=== PATIENT | male | born 1975 | race Caucasian/White ===

== ENCOUNTER → 2023-10-24 09:47 | Outpatient (BNVA) | payer OTHER, SELFPAY | PROVIDERS: PCP Internal Medicine; Visit Provider Physician Assistant Surgical ==

== ENCOUNTER 2023-12-01 10:52 | Outpatient (AMB) | payer OTHER, SELFPAY ==
--- NOTE | 2023-12-01 10:57 | A.OFFVIS_ITS ---
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 He heard about the program from his sister. His goal is to lose weight and achieve a healthy lifestyle as well as to improve, if not resolve, obesity related medical conditions, including htn, hld, berkley. He reports first being concerned about his weight most of his life, more so over the last 6 months, highest weight to date was 425. Current weight is 387.6 pounds with a BMI of 58.1. He has tried multiple methods of weight loss including fad diets without permanent results. He lives with his parents. 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 He wakes at:?530 am, and goes to bed at?930 pm. Dinner is at 5-6 pm. Breakfast: BK burrito AM snack: skip Lunch: sandwich PM snack: skip Dinner: meat and potatoes, vegetables After dinner: rare-rickey butter Other snacks: rare-cookies, Liquids: 48 oz water, [address] pepper daily, 8-10 oz OJ daily Alcohol/marijuana/tobacco intake: none Exercise: rowing machine as tolerated, GERD score: 0 ISABELLA score: 3 ESS score: 7 QOL score: 125 [facility] Surgical History (Updated 12/01/23 @ 11:29 by CASSANDRA Lock) History of back surgery Family History Mother No problems noted. Father No problems noted. Daughter No problems noted. Social History Alcohol intake: current Alcohol intake frequency: holidays/special occasions only Patient Tobacco Use Status: Never used Tobacco Review of Systems Const All systems reviewed & are unremarkable except as noted in HPI and below Physical Exam Const General: cooperative, healthy appearing and no acute distress Orientation/consciousness: patient oriented x3 HEENT Head: Yes normal to inspection Ears: hearing grossly normal bilaterally General nose exam: Normal external nose present Face and sinus: Yes normal facial exam Eyes General: appearance normal, both eyes and all related structures Resp Effort & Inspection: normal respiratory effort Auscultation: clear to auscultation bilaterally Cardio Rate: regular rate Rhythm: regular rhythm Heart sounds: S1 normal heart sound present and S2 normal heart sound present GI Inspection: Yes normal to inspection, No distended and Yes obesity Palpation (GI): Soft to palpation, nontender and no guarding Auscultation: normal bowel sounds Skin General skin exam: no rashes or lesions noted Neuro General: patient oriented x3 Extrem General: Yes edema (tr-1+ BLE) Left lower extremity: foot Details: other (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 Blood work, h pylori , CXR, ECG, Abd US and UGI have been ordered. He is being scheduled for RD and BH initial consultations. He will start SWL classes and watch the first three videos before his next appointment. ? Adequate sleep of 7-8 hours per night discussed, awakening at 530 am and going to bed around 930 pm ? Purchase body composition analyzer scale (Renpho recommended) and check weight weekly. I checked and this does go to 400 pounds but there are several models so check the specification before ordering. The best time to do this is first thing in the morning after going to the bathroom. 1. Nutritional counseling: Be sure to careful read the number of scoops per shake Start with 2 Celebrate rebuild shakes ([facility] [place], [place], [employer]), (2 scoops in 20 oz unsweetened almond milk each) First shake at 630am-830am, Second shake at 1030am-1230pm 1 protein bar ([employer] bars at [facility] [place], [place], [employer]) at 130pm-330pm. Dinner at 530pm (14 forks of protein and 14 forks of salad/vegetables). Meal to include lean meat (beef, fish, pork, turkey, chicken), cooked vegetables or a salad with olive oil and/or fruits (berries, pears, apples, kiwi). Avoid salt, breads, potatoes, rice, pasta, desserts. Try to drink 64 oz of water daily and avoid soda and juices. ?2. Each shake would be drunk slowly, like coffee in a period of 2 hours. ?3. Cut each bar in 4 pieces and eat each piece in 30 min ?to make each bar last 2 hours. ?4. I emphasized the importance of measuring accurately the food portion and measure it carefully when serving the food on the plate ?5. The meal portions include 14 full-size forks of meat and 14 full-size forks of salad. You always eat the meat portion but you can replace up to half of the forks of salad/vegetables with rice, potatoes or pasta, or a fruit ?if you like. The less you do it the better weight loss will be. ?6. One full-size fork is what can be scooped on the fork without falling aside and not what can be bit with the fork. Use regular forks like those you find in a typical restaurant. ?7.? Please send me weight measurements as soon as possible and then once a week. Always include your diet and exercise plan. Alternatively come weekly at the office for weight checks and send me the measurements. ?8. Exercise counseling: Begin by watching a stretching for beginners video. Start slowly and begin to stretch your muscles. You should do this before and after each exercise session to prevent injury. Please join [employer] or [employer] gym near your home. Ask the internet manager or one of the trainers how to use the machines if you are unfamiliar with them. Start elliptical with a resistance of 2. Increase resistance by 1 every 3 min to your most comfortable resistance with a max resistance of 8. Reduce the resistance by 1 every 3 minutes back down to 2 and repeat cycles for 300 calories. Alternatively, start treadmill with a speed of 3.0 and incline of 0, increasing incline by 1 every 3 minutes to the highest comfortable level (max 6 for now) then decrease in the same fashion. Repeat process to a goal of 300 calories. Goal of 2000 calories burned or more weekly. You may also consider use of the recumbent stationary bike. The easiest would be to chose the fat-burn or interval training program on the machine and do this until you reach the 300 calorie goal. Alternatively, you can manually adjust the resistance in a similar fashion as mentioned above, (resistance of 2-8 with a goal speed of 12 mph). You may also use the rowing machine that you have at home starting with a resistance of 3 and increasing resistance by 1 every three minutes to a max of 5 and then decrease in the same fashion. You may also consider joining the [facility] to be able to walk in the pool in the shallow end for 30-45 minutes 4 times per week. Swimming is also a great choice 4 times per week as an additional option. Tracking calories is essential. 9. Alternatively start walking outside daily, tracking calories with a goal of 300 calories per day, daily. You can download the deepa [email or web address] which can track your time, distance and calories while walking outside. You press start in the deepa when you start and then stop when you are finished. 10.? It is important to communicate by text weekly with your weight and if you are having any problems. 11. Please get labs, EKG and chest X-Ray within 1 week. 12. Discussed and answered all questions regarding?obtained consent to participate in the [place] [facility]?Registry. 13. Please follow the diet plan exactly, without any change. If you do not like something about the plan or you feel hungry, you need to communicate with me so I can help you revise the plan. You should not change the plan yourself. Text me at [phone] 14. Goal is to lose at least 12 pounds in the first month 15. Goal is to lose 10% of your weight before surgery, which is about 38 lbs. Ultimate weight goal: 349 lbs or less before surgery Patient is morbidly obese and is not considered stable at this time.?I spent a total of 70 minutes reviewing/updating records, examining the patient and counseling the patient on weight management as detailed above. Orders: Orders Insulin Today E66.01 - Morbid (severe) obesity due to excess calories, E78.00 - Pure hypercholesterolemia, unspecified, I10 - Essential (primary) hypertension Complete Blood Count Auto Diff Today E66.01 - Morbid (severe) obesity due to excess calories, E78.00 - Pure hypercholesterolemia, unspecified, I10 - Essential (primary) hypertension Lipid Panel Today E66.01 - Morbid (severe) obesity due to excess calories, E78 .00 - Pure hypercholesterolemia, unspecified, I10 - Essential (primary) hypertension Comprehensive Met. Panel Today E66.01 - Morbid (severe) obesity due to excess calories, E78.00 - Pure hypercholesterolemia, unspecified, I10 - Essential (primary) hypertension Vitamin B12 and Folate Today E66.01 - Morbid (severe) obesity due to excess calories, E78.00 - Pure hypercholesterolemia, unspecified, I10 - Essential (primary) hypertension Zinc Today E66.01 - Morbid (severe) obesity due to excess calories, E78.00 - Pure hypercholesterolemia, unspecified, I10 - Essential (primary) hypertension C Reactive Protein Today E66.01 - Morbid (severe) obesity due to excess calories, E78.00 - Pure hypercholesterolemia, unspecified, I10 - Essential (primary) hypertension XR chest 2V Today E66.01 - Morbid (severe) obesity due to excess calories, E78.00 - Pure hypercholesterolemia, unspecified, I10 - Essential (primary) hypertension ECG 12 lead EKG Today E66.01 - Morbid (severe) obesity due to excess calories, E78.00 - Pure hypercholesterolemia, unspecified, I10 - Essential (primary) hypertension FL upper GI w air Today E66.01 - Morbid (severe) obesity due to excess calories, E78.00 - Pure hypercholesterolemia, unspecified, I10 - Essential (primary) hypertension Hemoglobin A1c Today E66.01 - Morbid (severe) obesity due to excess calories, E78.00 - Pure hypercholesterolemia, unspecified, I10 - Essential (primary) hypertension H Pylori Breath Test Today E66.01 - Morbid (severe) obesity due to excess calories, E78.00 - Pure hypercholesterolemia, unspecified, I10 - Essential (primary) hypertension IRON PROFILE Today E66.01 - Morbid (severe) obesity due to excess calories, E78.00 - Pure hypercholesterolemia, unspecified, I10 - Essential (primary) hypertension Vitamin B1 Today E66.01 - Morbid (severe) obesity due to excess calories, E78.00 - Pure hypercholesterolemia, unspecified, I10 - Essential (primary) hypertension Vitamin A Today E66.01 - Morbid (severe) obesity due to excess calories, E78.00 - Pure hypercholesterolemia, unspecified, I10 - Essential (primary) hypertension TSH reflex Free T4 Today E66.01 - Morbid (severe) obesity due to excess calories, E78.00 - Pure hypercholesterolemia, unspecified, I10 - Essential (primary) hypertension Ferritin Today E66.01 - Morbid (severe) obesity due to excess calories, E78.00 - Pure hypercholesterolemia, unspecified, I10 - Essential (primary) hypertension Vitamin D 25-OH Total Today E66.01 - Morbid (severe) obesity due to excess calories, E78.00 - Pure hypercholesterolemia, unspecified, I10 - Essential (primary) hypertension US abdomen comp w elastography Today E66.01 - Morbid (severe) obesity due to excess calories, E78.00 - Pure hypercholesterolemia, unspecified, I10 - Essential (primary) hypertension Referrals Nutrition/Dietitian Referral E66.01 - Morbid (severe) obesity due to excess calories, E78.00 - Pure hypercholesterolemia, unspecified, I10 - Essential (primary) hypertension Behavioral Health Referral E66.01 - Morbid (severe) obesity due to excess calories, E78.00 - Pure hypercholesterolemia, unspecified, I10 - Essential (primary) hypertension Coding Level of Care Code New Pt Level 5 (24129) Diagnoses Morbid obesity E66.01 Time Spent (min) 70
[2023-12-01 11:06] VITALS: BP 148/70; PULSE 100; TEMP 36; O2SAT 95; BMI 58.1
== END 2023-12-01 12:27 | disposition home or self-care (01) ==
PROVIDERS: PCP Internal Medicine; Visit Provider Physician Assistant Surgical
DX: E66.01 Morbid (severe) obesity due to excess calories (principal); Z68.43 Body mass index [BMI] 50.0-59.9, adult
CPT/HCPCS: 99205

== ENCOUNTER → 2023-12-01 10:52 | Outpatient (BNVA) | payer OTHER, SELFPAY | PROVIDERS: PCP Internal Medicine; Visit Provider Physician Assistant Surgical | DX: E66.01 Morbid (severe) obesity due to excess calories (principal); Z68.43 Body mass index [BMI] 50.0-59.9, adult | CPT/HCPCS: 99202 ==

== ENCOUNTER 2023-12-12 11:37 | Outpatient (REF) | payer OTHER, SELFPAY ==
--- NOTE | ~2023-12-12 | XR_ITS ---
EXAMINATION: XR CHEST CLINICAL INFORMATION: Reason for Exam E66.01 - Morbid (severe) obesity due to excess calories COMPARISON: None available. TECHNIQUE: 2 views of the chest were obtained. FINDINGS: No significant abnormality is noted involving the heart, lungs, mediastinum, bony thorax or soft tissues. XR/XR chest 2V IMPRESSION: Unremarkable examination.
--- NOTE | 2023-12-12 11:44 | ECG_ITS ---
Test Reason : E66.01 Blood Pressure : / mmHG Vent. Rate : 081 BPM Atrial Rate : 081 BPM P-R Int : 252 ms QRS Dur : 102 ms QT Int : 374 ms P-R-T Axes : 069 -16 027 degrees QTc Int : 434 ms Sinus rhythm with 1st degree A-V block Inferior infarct , age undetermined Abnormal ECG No previous ECGs available Referred By: Mannie Neves Electronically Signed By:Keenan Hernandez
[2023-12-12 12:04] LABS: MANUAL DIFF FLAG NO
[2023-12-12 12:26] LABS: Basophils Percent Auto 0.4 % (0-2); Eosinophils Absolute Auto 0.1 X10*3/uL (0.0-0.4); Eosinophils Percent Auto 1.8 % (0-4); Hematocrit 43.5 % (42.0-52.0); Hemoglobin 14.6 g/dl (14.0-18.0); Imm Gran Abs Auto 0.01 X10*3/uL (0.00-0.03); Imm Gran Pct Auto 0.2 % (0.0-0.4); Lymphocytes Absolute Auto 1.7 X10*3/uL (1.2-4.9); Lymphocytes Percent Auto 31.6 % (20-40); Mean Corpuscular HGB Conc 33.6 g/dl (31.0-36.0); Mean Corpuscular Hemoglobin 30.3 pg (27.0-33.0); Mean Corpuscular Volume 90.2 fL (80.0-98.0); Mean Platelet Volume 11.2 fL (9.4-12.4); Monocytes Absolute Auto 0.5 X10*3/uL (0.1-1.2); Monocytes Percent Auto 8.5 % (2-11); Neutrophils Absolute Auto 3.2 x10*3/uL (2.0-8.3); Neutrophils Percent Auto 57.5 % (45-73); Platelet Count 195 X10*3/uL (160-400); Red Blood Count 4.82 X10*6/uL (4.60-5.80); Red Cell Distribution Width 13.2 % (11.0-16.0); White Blood Count 5.5 X10*3/uL (4.8-10.8)
[2023-12-12 12:39] LABS: Estimated Average Glucose 97 mg/dL
[2023-12-12 12:50] LABS: Alanine Aminotransferase 59 U/L (0-40); Albumin Level 4.8 g/dL (3.5-5.0); Alkaline Phosphatase 58 U/L (39-117); Anion Gap 16 (12-20); Aspartate Amino Transferase 46 U/L (5-37); Bilirubin Total 0.5 mg/dL (0.0-1.0); Blood Urea Nitrogen 19 mg/dL (9-16); C Reactive Protein 0.61 mg/dL (< or = 0.50); Calcium 9.6 mg/dL (8.4-10.2); Carbon Dioxide 27 mmol/L (22-29); Chloride 100 mmol/L (96-108); Cholesterol 132 mg/dL (<200); Estimated Glomerular Filt Rate > 60; Glucose Random 86 mg/dL (60-115); HDL Cholesterol 17 mg/dL (>40); Iron 99 mcg/dL (45-160); LDL Cholesterol Calculated 57 mg/dL (<100); Percent Iron Saturation 33 % (15-50); Potassium 4.4 mmol/L (3.3-5.1); Sodium 139 mmol/L (135-145); Total Iron Binding Capacity 298 mcg/dL (228-428); Total Protein 7.6 g/dL (6.5-8.0); Triglycerides 292 mg/dL (<150); Unsaturated Iron Binding 199 ug/dL
[2023-12-12 13:06] LABS: Ferritin 723 ng/mL (20-250); Insulin 18 uU/mL (2-29); TSH reflex Free T4 0.61 uIU/mL (0.32-4.0); Vitamin D 25-OH Total 26.1 ng/mL (>30)
[2023-12-12 13:18] LABS: Folate 13.6 ng/mL (> or = 4.0); Vitamin B12 860 pg/mL (200-900)
[2023-12-15 01:33] LABS: Vitamin A 88 mcg/dL (38-98)
[2023-12-15 02:43] LABS: Zinc 93 mcg/dL (60-130)
[2023-12-16 17:24] LABS: Vitamin B1 <6 nmol/L (8-30)
== END 2023-12-12 11:38 | disposition home or self-care (01) ==
LOC: HO.LAB 11:37
PROVIDERS: PCP Internal Medicine; Visit Provider Physician Assistant Surgical
DX: E66.01 Morbid (severe) obesity due to excess calories (principal); E78.00 Pure hypercholesterolemia, unspecified; I10 Essential (primary) hypertension
CPT/HCPCS: 36415; 71046; 80053; 80061; 82306; 82607; 82728; 82746; 83036; 83525; 83540; 84425; 84443; 84590; 84630; 85025; 86140; 93005

== ENCOUNTER → 2023-12-12 11:44 | Outpatient (BNV) | payer OTHER, SELFPAY | PROVIDERS: PCP Internal Medicine; Visit Provider Internal Medicine Cardiovascular Disease | DX: E66.01 Morbid (severe) obesity due to excess calories (principal); I44.0 Atrioventricular block, first degree | CPT/HCPCS: 93010 ==

== ENCOUNTER 2023-12-22 11:27 | Outpatient (AMB) | payer OTHER, SELFPAY ==
--- NOTE | 2023-12-22 11:12 | MHC.AMNUTRGE ---
Intake Intake Visit Reasons: VIDEO Initial Nutrition [facility] Auditing Specialist Required: No Allergies Sulfa (Sulfonamide Antibiotics) Allergy (Intermediate, Verified 12/01/23 11:02) Rash pcn Adverse Reaction (Intermediate, Uncoded 10/24/23 10:34) rash HPI Nutrition Presentation Reason for consult elevated BMI Diet Assmnt Details Reports doing well with the plan and states its not difficult to stick to it . Does sometimes lose track of bites of food. Overall he really like the nutrition plan from [place]. Does report hx of emotional eating but is very mindful and aware of it. We talked about coping strategies and seeking support as needed. [facility] online classes: none yet ; was having issues accessing them Dietary counseling reduction Who buys your food parent Who prepares/cooks your food parent Meal frequency regular: breakfast, lunch and dinner (meal at home) and irregular: snacks (very rare ) Lifestyle Eating out 4 or more times/week Family support Yes Food frequency Fruit: daily, Vegetables: daily, Grains/pasta/breads/cereal (carbs): daily, Meats/poultry/fish (protein): daily (minimal fish ), Meat substitutes/nuts/seeds/legumes: daily, Processed foods/meats: daily, Restaurants/fast foods: daily, Soda: daily, Coffee: occasionally and Sports/energy drinks: daily Diagnosis Nutrition problem #1 overweight/obesity As related to (etiology) #1 excess energy intake and physical inactivity As evidenced by (sign/symptom) #1 high BMI Monitoring/Goals Nutrition problem monitoring total energy intake, level of knowledge/skill, total PRO intake, total CHO intake and weight Outcome progress progressing Learning/Education Readiness to learn excellent Stages of change action Educational materials provided Yes Most Recent Diabetes Results: Cholesterol 132 mg/dL (<200) 12/12/23 HDL Cholesterol 17 mg/dL (>40) L 12/12/23 Triglycerides 292 mg/dL (<150) H 12/12/23 Creatinine 1.12 mg/dL (0.5-1.4) 12/12/23 Blood Urea Nitrogen 19 mg/dL (9-16) H 12/12/23 Sodium 139 mmol/L (135-145) 12/12/23 Potassium 4.4 mmol/L (3.3-5.1) 12/12/23 Chloride 100 mmol/L (96-108) 12/12/23 Carbon Dioxide 27 mmol/L (22-29) 12/12/23 Calcium 9.6 mg/dL (8.4-10.2) 12/12/23 AST 46 U/L (5-37) H 12/12/23 ALT 59 U/L (0-40) H 12/12/23 Total Protein 7.6 g/dL (6.5-8.0) 12/12/23 Albumin 4.8 g/dL (3.5-5.0) 12/12/23 [facility] Surgical History (Updated 12/01/23 @ 11:29 by CASSANDRA Lock) History of back surgery Family History (Updated 12/01/23 @ 11:04 by Marion Doll CMA) Mother No problems noted. Father No problems noted. Daughter No problems noted. Social History (Updated 12/01/23 @ 11:03 by Marion Doll CMA) Alcohol intake: current Alcohol intake frequency: holidays/special occasions only Patient Tobacco Use Status: Never used Tobacco Assessment & Plan Assessment & Plan (1) Morbid obesity: Code(s): E66.01 - Morbid (severe) obesity due to excess calories Plan Will be seen again to review SWL classes . nutrition f/u December Telehealth Telehealth Location of provider rendering services: practice address Location of patient: address on file Patient Identification confirmed using: Name, : Yes Telehealth method: video Patient verbally consented to treatment: Yes Patient verbally consented to billing insurance company: Yes Patient informed of any privacy concerns related to visit: Yes Minutes spent on Phone/Video with Pt.: 30 Coding Level of Care Code Nutr Indiv Intake (70074) Diagnoses Morbid obesity E66.01 Time Spent (min) 30
== END 2023-12-22 11:36 | disposition home or self-care (01) ==
LOC: HO.HBS 11:30
PROVIDERS: PCP Internal Medicine; Visit Provider Dietitian, Registered
DX: E66.01 Morbid (severe) obesity due to excess calories (principal)

== ENCOUNTER → 2023-12-22 11:27 | Outpatient (BNVA) | payer OTHER, SELFPAY | PROVIDERS: PCP Internal Medicine; Visit Provider Dietitian, Registered | DX: E66.01 Morbid (severe) obesity due to excess calories (principal) | CPT/HCPCS: 97802 ==

== ENCOUNTER 2023-12-29 09:15 | Outpatient (REF) | payer OTHER, SELFPAY ==
--- NOTE | ~2023-12-29 | US_ITS ---
EXAMINATION: US COMPLETE ABDOMEN WITH LIVER ELASTOGRAPHY CLINICAL INFORMATION: Morbid obesity. COMPARISON: CT scan dated September 13, 2007. TECHNIQUE: Real-time imaging of the abdominal viscera. Noninvasive ultrasound liver fibrosis assessment is performed using Christian[employer] Elast[employer] point quantification shear wave elastography (2D-SWE) with a C5-2 MHz transducer. Multiple elastography samples are obtained. FINDINGS: Somewhat limited by patient body habitus. PANCREAS: Head and body appear unremarkable. Tail not visualized. ABDOMINAL AORTA: The proximal, middle, and distal aortic segments appear unremarkable in caliber. INFERIOR VENA CAVA: Visualized portions appear unremarkable. LIVER: Borderline mildly echogenic. Unremarkable contour. No focal lesion or intrahepatic biliary duct dilatation appreciated. The right lobe measures 19.7 cm in length. The left lobe measures 16.1 cm in length. Portal flow is towards the liver (hepatopetal). Shear wave liver elastography median stiffness is 1.79 m/s (reference: normal median stiffness is 1.3 m/s or less). IQR/median stiffness to assess sampling precision is 0.11 (reference: good quality data set is IQR/median stiffness of 0.15 or less). GALLBLADDER: The gallbladder is physiologically distended without evidence of stones, sludge, polyps, wall thickening or pericholecystic fluid. Technologist reports negative sonographic Coronado's sign. COMMON BILE DUCT: Normal in caliber measuring 0.5 cm in diameter. RIGHT KIDNEY: No hydronephrosis. No renal calculi or focal parenchymal lesion identified. The kidney measures 13.7 cm in maximum dimension. LEFT KIDNEY: 1.2 x 1.0 x 0.9 cm, homogeneously hypoechoic, exophytic left upper pole renal lesion which does not clearly demonstrate increased through transmission, therefore incompletely characterized. No hydronephrosis. No renal calculi identified. The kidney measures 14.6 cm in maximum dimension. SPLEEN: The spleen measures 13.0 cm in maximum dimension. FREE FLUID: None. US/US abdomen comp w elastography IMPRESSION: 1.2 x 1.0 x 0.9 cm, homogeneously hypoechoic, exophytic left upper pole renal lesion which does not clearly demonstrate increased through transmission, therefore incompletely characterized on the current ultrasound examination. Recommend with and without MRI or with and without CT scan for further evaluation. Borderline mild fatty infiltration of the liver. Mild hepatosplenomegaly. Liver elastography: Measurements are suggestive of compensated advanced chronic liver disease but need further test for confirmation. REFERENCE: Society of Radiologists in Ultrasound Liver Stiffness Thresholds (2020): LIVER STIFFNESS THRESHOLDS: *Liver Stiffness equal or less than 1.3 m/s: High probability of being normal. *Liver Stiffness less than 1.7 m/s: In the absence of other known clinical signs, rules out compensated advanced chronic liver disease. *Liver Stiffness 1.7-2.1 m/s: Suggestive of compensated advanced chronic liver disease but need further test for confirmation. *Liver Stiffness over 2.1 m/s: Rules in compensated advanced chronic liver disease. *Liver Stiffness over 2.4 m/s: Suggestive of clinically significant portal hypertension. QUALITY OF DATA SET: *IQR/Median value equal or less than 0.15 implies a quality data set. *IQR/Median value over 0.15 implies a poor quality data set. SIGNIFICANT CHANGE FROM PRIOR EXAM: Significant change if liver stiffness measurement is 10% or greater from prior exam. OTHER CONSIDERATIONS: The stage of liver fibrosis may be overestimated in the setting of acute hepatitis, liver inflammation, elevated liver function tests, hepatic vascular congestion, obstructive cholestasis, non-fasting state, and infiltrative diseases such as amyloidosis and lymphoma. In some patients with NAFLD, the liver stiffness thresholds for compensated advanced chronic liver disease may be lower. In causes other than viral hepatitis and NAFLD, liver stiffness thresholds are not well established.
== END 2023-12-29 09:16 | disposition home or self-care (01) ==
LOC: HO.US 09:15
PROVIDERS: PCP Internal Medicine; Visit Provider Physician Assistant Surgical
DX: E66.01 Morbid (severe) obesity due to excess calories (principal); E78.00 Pure hypercholesterolemia, unspecified; I10 Essential (primary) hypertension
CPT/HCPCS: 76700; 76981

== ENCOUNTER → 2024-01-01 09:56 | Outpatient (REF) | payer OTHER, SELFPAY ==
--- NOTE | ~2024-01-01 | NM_ITS ---
Myocardial perfusion study Indication: Abnormal EKG to evaluate for myocardial ischemia Technique: The patient was brought in for a Lexiscan perfusion study on 01/01/2024. Patient performed low-level exercise and was injected 0.4 mg of Lexiscan intravenously. Within a minute of injection, 45 mCi of sestamibi was given intravenously. Images were obtained using the SPECT gamma camera interlaced with the gating device. Images were obtained in supine position. Resting perfusion study was performed on 01/08/2024. Patient was administered 45 mCi of sestamibi intravenously at rest. Images were then obtained in supine position. Images obtained with and without CT attenuation. Total DLP 187 mGy-cm. Images were processed with the software and compared side to side in short axis, horizontal long axis and vertical long axis views. Findings: The stress perfusion study showed non attenuated images show moderately reduced uptake in the inferior wall with mildly reduced uptake in the adjacent inferoseptal wall of the LV myocardium. Remainder of the LV myocardium is normally perfused. Attenuation corrected images show some thinning of the inferoapical wall of the LV myocardium.. The gated study shows normal LV systolic function with calculated LVEF of greater than 50%. LV cavity is normal in size. The gated study shows normal systolic wall thickening and contraction of segments. Resting study shows non attenuated images show no change in perfusion pattern compared to stress perfusion study. Attenuation corrected images show mildly to moderately reduced uptake in the apex of the LV myocardium.. Gating at rest reveals normal systolic wall motion with ejection fraction at 58%. The findings are consistent with likely normal myocardial perfusion. NM/NM cardiolite stress test Impression: 1. Myocardial perfusion imaging study shows likely normal myocardial perfusion 2. Gated LVEF is 58% 3. Transient ischemic dilatation not present EKG is nondiagnostic for ischemia
--- NOTE | 2024-01-01 09:59 | CA_ITS ---
Acquisition Time: 2024-01-01 10:05:37 Total Exercise Time: 00:02:00 Test Indications: Abnormal ECG Medications: CITALOPRAM LISINOPRIL/HCTZ LATUDA MELOXICAM ROSUVASTATIN Protocol: LEXISCAN Max HR: 125 BPM 73% of Pred: 171 BPM Max BP: 146/070 mmHG Max Work Load: 1.0 METS Pharmaoclogical stress test with Lexiscan injection while sitting and kicking his legs, without anginal symptoms., witout arrhythmias, with resting HTN, normotensive resposne to injection, with nondiagnoisitic EKGs. Nuclear images pending. Test reviewed with Dr. Hernandez. Referred By: Mannie Neves Overread By: Odalis Ferreira
== END ==
LOC: HO.CARD 09:56
PROVIDERS: PCP Internal Medicine; Visit Provider Physician Assistant Surgical
DX: R94.31 Abnormal electrocardiogram [ECG] [EKG] (principal)
CPT/HCPCS: 78452; 93017; A9500; J0280; J2785

== ENCOUNTER → 2024-01-01 09:59 | Outpatient (BNV) | payer OTHER, SELFPAY | PROVIDERS: PCP Internal Medicine; Visit Provider Nurse Practitioner | DX: R94.31 Abnormal electrocardiogram [ECG] [EKG] (principal) | CPT/HCPCS: 78452; 93016; 93018 ==

== ENCOUNTER 2024-01-01 15:42 | Outpatient (AMB) | payer OTHER, SELFPAY ==
--- NOTE | 2024-01-01 15:34 | MHC.WMTHER ---
Intake Intake Visit Reasons: VIDEO BH Intake Allergies Sulfa (Sulfonamide Antibiotics) Allergy (Intermediate, Verified 12/01/23 11:02) Rash pcn Adverse Reaction (Intermediate, Uncoded 10/24/23 10:34) rash PFSH Surgical History (Updated 12/01/23 @ 11:29 by CASSANDRA Lock) History of back surgery Family History (Updated 12/01/23 @ 11:04 by Marion Doll CMA) Mother No problems noted. Father No problems noted. Daughter No problems noted. Social History (Updated 12/01/23 @ 11:03 by Marion Doll CMA) Alcohol intake: current Alcohol intake frequency: holidays/special occasions only Patient Tobacco Use Status: Never used Tobacco Behavioral Health Assessment Weight Management Therapy Therapy Notes Details Pt is looking to have weight loss surgery to help improve his health and quality of life. Pt has a long history of depression and some hypomanic episodes. He stated that he sees a nurse practioner (Tania Pressley) for medication, has been diagnosed him with Cyclothymic Disorder. He was seein a therapist in that office but did not find it helpful to recap his past two weeks. He reported one previous inpatient psychiatric admission in 2013 with a stepdown to [facility] program outpatient. Presenting Concerns Referral Source provider Reason for referral weight loss surgery evaluation Precipitating Event obesity Living Situation Current Living Situation Relative's/Guardian's Pilar At risk of losing current housing? No Satisfied with current living situation? Yes Comments Patient lives with his elderly parents. Food/Weight/Diet Expectations of change weight loss and maintenance History/Relationship with food Pt stated that he was often snacking, eating out of boredom or emotional eating. He was eating fast food about several times a week, History/Relationship with weight Pt stated that at his heaviest he was 424lbs, once in his late 20's, then dropped to 275lbs. He stated that he was somewhat always overweight. History/Relationship with dieting various self diets, will be consistent for about 20lbs and then stop. Binge Eating Do you frequently eat large amounts of food in short periods of time, not feeling physically hungry? Yes Do you feel out of control when you eat a large amount of food in a short period of time? No Do you eat large amounts of food rapidly and typically alone? No Night Eating Do you wake up at least once during the night to eat? No If you wake up in the night, do you find that it is necessary to eat something in order to fall back asleep? No Do you have little or no appetite in the morning and feel very hungry in the evening, often overeating between dinner and when you go to bed? No Social History Family history and relationship Pt is and has one child who is ten years old who he does not get to see. He lives with his parents. Pt is one of three siblings raised by both his parents. Parental/Familial water rights specialist obligations elderly parents Developmental history and status none Social support sister, brother, mother Cultural/Ethnic information Legal Involvement and History Current or historical involvement with the legal system? none Education Highest grade completed some college Preferred learning style Auditory, Verbal, Written, Learn by doing and Visual Currently enrolled in educational program? No Interested in further educational program? 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 No Meaningful activities Has a membership to the [employer] Financial Situation Describe current financial situation Occasional struggle Financial assistance? None Service Service? No Mental Health and Addiction Treatment Current/Past substance abuse? No Current/Past addictive behavior concerns? No Medical and Physical Health Summary Physical exam in the last year? Yes Pain Screening Current pain? No Pain in the last few months? No Medications Is the patient compliant with medications? Yes Does the patient have Victoria Guardian in place? Not applicable Does the patient use complimentary health approaches? No Trauma/Abuse History History of trauma? Yes Questionnaires PHQ-9 Over the last 2 weeks, how often have you been bothered by any of the following problems? 1. Little interest or pleasure in doing things: several days 2. Feeling down, depressed, or hopeless: more than half the days 3. Trouble falling or staying asleep, or sleeping too much: more than half the days 4. Feeling tired or having little energy: more than half the days 5. Poor appetite or overeating: more than half the days 6. Feeling bad about yourself - or that you are a failure or have let yourself or your family down: several days 7. Trouble concentrating on things, such as reading the newspaper or watching television: nearly every day 8. Moving or speaking so slowly that other people could have noticed. Or the opposite - being so fidgety or restless that you have been moving around a lot more than usual: not at all 9. Thoughts that you would be better off or of hurting yourself in some way: several days Total score: 14 Source: Developed by Drs. Teo Pulido, Randi Rocha, Devendra Silverio and colleagues, with an educational ishmael from [employer]. Binge Eating Scale Group 1 A. I don't feel self-conscious about my wt. or body size when I'm with others. B. I feel concerned about how I look to others, but it normally does not make me fell disappointed with myself C. I do get self-conscious about my appearance and wt. which makes me feel disappointed in myself. D. I feel very self-conscious about my wt. and frequently I feel intense shame and disgust for myself. I try to avoid social contacts because of my self-consciousness. Response Group 1: D Group 2 A. I don't have any difficulty eating slowly in the proper manner. B. Although I seem to gobble down foods, I don't end up feeling stuffed because of eating to much. C. At times, I tend to eat quickly and then, I feel uncomfortably full afterwards. D. I have the habit of bolting down my food, without really chewing it. When this happens I usually feel uncomfortably stuffed because I've eaten to much. Response Group 2: C Group 3 A. I feel capable to control my eating urges when I want to. B. I feel like I have failed to control my eating more than the average person. C. I feel utterly helpless when it comes to feeling in control of my eating urges. D. Because I feel so helpless about controlling my eating I have become very desperate about trying to get control. Response Group 3: B Group 4 A. I don't have the habit of eating when I'm bored. B. I sometimes eat when I'm bored, but often I'm able to get busy and get my mind off food. C. I have a regular habit of eating when I'm bored, but occasionally, I can use some other activity to get my mind off eating. D. I have a strong habit of eating when I'm bored. Nothing seems to help me breath the habit. Response Group 4: C Group 5 A. I'm usually physically hungry when I eat something. B. Occasionally, I eat something on impulse even though I really am not hungry. C. I have the regular habit of eating foods, that I might not really enjoy, to satisfy a hungry feeling even though physically, I don't need the food. D. Although I'm not physically hungry, I get a hungry feeling in my mouth that only seems to be satisfied when I eat a food, like sandwich, that fills my mouth. Sometimes, when I eat the food to satisfy my mouth hunger, I then spit the food out so I won't gain weight. Response Group 5: B Group 6 A. I don't feel any guilt or self-hate after I overeat. B. After I overeat, occasionally I feel guilt or self-hate. C. Almost all the time I experience strong guilt or self-hate after I overeat. Response Group 6: B Group 7 A. I don't lose total control of my eating when dieting even after periods when I overeat. B. Sometimes when I eat a forbidden food on a diet, I feel like I blew it and eat even more. C. Frequently, I have the habit of saying to myself, I've blown it now, why not go all the way, when I overeat on a diet. When that happens I eat more. D. I have a regular habit of starting a strict diets for myself but I break the diets by going on an eating binge. My life seems to be either a feast or famine. Response Group 7: D Group 8 A. I rarely eat so much food that I feel uncomfortably stuffed afterwards. B. Usually about once a month, I each such a quantity of food, I end up feeling very stuffed. C. I have regular periods during the month when I eat large amounts of food, either at mealtime or at snacks. D. I eat so much food that I regularly feel quite uncomfortable after eating and sometimes a bit nauseous. Response Group 8: A Group 9 A. My level of calorie intake does not go up very high or go down very low on a regular basis. B. Sometimes after I overeat, I will try to reduce my caloric intake to almost nothing to compensate for the excess calories I've eaten. C. I have a regular habit of overeating during the night. It seems that my routine is not to be hungry in the morning but overeat in the evening. D. In my adult years, I have had week-long periods where I practically starve myself. This follows periods when I overeat. It seems I live a life of either feast or famine. Response Group 9: B Group 10 A. I usually am able to stop eating when I want to. I know when enough is enough. B. Every so often, I experience a compulsion to eat which I can't seem to control. C. Frequently, I experience strong urges to eat which I seem unable to control, but at other times I can control my eating urges. D. I feel incapable of controlling urges to eat. I have a fear of not being able to stop eating voluntarily. Response Group 10: C Group 11 A. I don't have any problem stopping eating when I feel full. B. I usually can stop eating when I feel full but occasionally overeat leaving me feeling uncomfortably stuffed. C. I have a problem stopping eating once I start and usually I feel uncomfortably stuffed after I eat a meal. D. Because I have a problem not being able to stop eating when I want, I sometimes have to induce vomiting to relieve my stuffed feeling. Response Group 11: B Group 12 A. I seem to eat just as much when I'm with others, Family social gatherings as when I'm by myself. B. Sometimes, when I'm with other persons, I don't eat as much as I want to eat because I'm self-conscious about my eating. C. Frequently, I eat only a small amount of food when others are present, because I'm very embarrassed about my eating. D. I feel so ashamed about overeating that I pick times to overeat when I know no one will see me. I feel like a closet eater. Response Group 12: A Group 13 A. I eat three meals a day with only an occasional between meal snack. B. I eat 3 meals a day, but I also normally snack between meals. C. When I am snacking heavily, I get in the habit of skipping regular meals. D. There are regular periods when I seem to be continually eating, with no planned meals. Response Group 13: C Group 14 A. I don't think much about trying to control unwanted eating urges. B. At least some of the time, I feel my thoughts are pre-occupied with trying to control my eating urges. C. I feel that frequently I spend much time thinking about how much I ate or about trying not to eat anymore. D. It seems to me that most of my waking hours are pre-occupied by thoughts about eating or not eating. I feel like I'm constantly struggling not to eat. Response Group 14: C Group 15 A. I don't think about food a great deal. B. I have strong craving for food but they last only for brief periods of time. C. I have days when I can't seem to think about anything else but food. D. Most of my days seem to be pre-occupied with thoughts about food. I feel like I live to eat. Response Group 15: B Group 16 A. I usually know whether or not I'm physically hungry. I take the right portion of food to satisfy me. B. Occasionally, I feel uncertain about knowing whether or not I'm physically hungry. A these times it's hard to know how much food I should take to satisfy me. C. Even though I might know how many calories I should eat, I don't have any idea what is a normal amount of food for me. Response Group 16: C Binge Eating Score: 24 Score less than 17 Minimal Risk Score between 18-26 Moderate Risk Score between 27-46 High Risk Assessment & Plan Assessment & Plan (1) Depression, unspecified: Code(s): F32.A - Depression, unspecified (2) Morbid obesity: Code(s): E66.01 - Morbid (severe) obesity due to excess calories Plan He reported a history of depression for most of his life he reported. Patient stated that he would never act on thoughts he has of dying because he knows it would hurt others. He is currently not in therapy and will be seen again Telehealth Telehealth Location of provider rendering services: practice address Location of patient: address on file Patient Identification confirmed using: Name, : Yes Telehealth method: voice only Patient verbally consented to treatment: Yes Patient verbally consented to billing insurance company: Yes Patient informed of any privacy concerns related to visit: Yes Minutes spent on Phone/Video with Pt.: 45 Coding Level of Care Code Tele Psy Diag Eval (16544) Diagnoses Depression, unspecified F32.A Morbid obesity E66.01 Time Spent (min) 50
== END 2024-01-01 16:18 | disposition home or self-care (01) ==
PROVIDERS: PCP Internal Medicine; Visit Provider Counselor Mental Health
DX: F32.A Depression, unspecified (principal); E66.01 Morbid (severe) obesity due to excess calories
CPT/HCPCS: 90791

== ENCOUNTER 2024-01-05 08:19 | Outpatient (AMB) | payer OTHER, SELFPAY ==
--- NOTE | 2024-01-05 12:11 | A.OFFVIS_ITS ---
Intake VS Expanded 01/05/24 12:43 Height 5 ft 8.5 in Weight 363 lb 8 oz BMI 54.5 Body Fat % 64.2 Body Fat Mass 233.5 Fat Free Mass 130.2 Visceral Fat Rating 30 Body Water Mass 93.8 Basal Metabolic Rate/Score 1,652 Intake Visit Reasons: TV Transfer / Mannie Allergies Sulfa (Sulfonamide Antibiotics) Allergy (Intermediate, Verified 01/05/24 12:11) Rash pcn Adverse Reaction (Intermediate, Uncoded 01/05/24 12:11) rash Medication List - Last Reconciled 01/05/24 by Jaspreet Vargas MD allopurinol 300 mg PO DAILY bupropion HCl 300 mg PO DAILY cholecalciferol (vitamin D3) 125 mcg PO DAILY 90 days citalopram 10 mg PO DAILY lisinopril-hydrochlorothiazide 10-12.5 mg 1 tab PO DAILY lorazepam 0.5 mg PO DAILY PRN lurasidone (Latuda) 60 mg PO DAILY meloxicam 15 mg PO DAILY oxcarbazepine ER 600 mg PO BID quetiapine 200 mg PO BEDTIME quetiapine 25 mg PO .prn rosuvastatin 5 mg PO DAILY thiamine HCl (vitamin B1) 100 mg PO DAILY 90 days HPI TV Transfer / Mannie HPI Details Start time: 11.57am, End time: 12.42pm ?I spent 35 minutes speaking with the patient on the phone plus an additional 10 minutes reviewing and updating records for a total of 45 minutes HPI Comments History of Present Illness Details Overall weight loss: 24.1lbs, or 6.21% TBWL Is doing 2 Celebrate Rebuild protein shakes (2 scoops in almond milk), one Celebrate protein bar and one meal (14 forks of meat and 14 forks of salad or vegetables) Exercise: walking outside 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 Father No problems noted. Daughter No problems noted. Social History (Updated 12/01/23 @ 11:03 by Marion Doll CMA) Alcohol intake: current Alcohol intake frequency: holidays/special occasions only Patient Tobacco Use Status: Never used Tobacco Assessment & Plan Assessment & Plan (1) Morbid obesity: Code(s): E66.01 - Morbid (severe) obesity due to excess calories Plan: 1. Plan for lap sleeve gastrectomy. If diaphragmatic or ventral hernias are present at time of surgery, these will be repaired laparoscopically as well. Risks and complications were discussed in detail including possible conversion to an open procedure, anastomotic leak, bleeding requiring transfusion, small bowel obstruction, , DVT and pulmonary embolism, cardiac, or pulmonary complications, as extermination supervisor complications such as anastomotic ulcer, insufficient weight loss and vitamin deficiencies. I emphasized the importance of close follow-up, adherence to instructions and good communication. 2. Change nutritional plan to one Celebrate Rebuild protein shake (1 scoop in 8oz almond milk) 8am-10am, another Celebrate Rebuild protein shake (2 scoops in almond milk) at 11am-1pm, one Celebrate protein bar at 2pm-4pm, one meal at 5pm (14 forks of meat and 14 forks of salad or vegetables) and one more Celebrate bar at 7pm-9pm. 3. Start the rowing machine and the stationary bike daily for 150 calories each. Goal is to burn collectively 2000 calories per week on aerobic exercise. 4. Send me weight measurements weekly on Sundays Orders: Orders CT abdomen pelvis wo IV con Today N28.9 - Disorder of kidney and ureter, unspecified Telehealth Telehealth Location of provider rendering services: practice address Location of patient: address on file Patient Identification confirmed using: Name, : Yes Telehealth method: voice only Patient verbally consented to treatment: Yes Patient verbally consented to billing insurance company: Yes Patient informed of any privacy concerns related to visit: Yes Minutes spent on Phone/Video with Pt.: 45 Coding Level of Care Code Tele Est Pt Level 5 (98043) Diagnoses Morbid obesity E66.01 Time Spent (min) 45
[2024-01-05 12:43] VITALS: BMI 54.5
== END 2024-01-05 12:44 | disposition home or self-care (01) ==
PROVIDERS: PCP Internal Medicine; Visit Provider Surgery
DX: E66.01 Morbid (severe) obesity due to excess calories (principal); Z68.43 Body mass index [BMI] 50.0-59.9, adult
CPT/HCPCS: 99215

== ENCOUNTER → 2024-01-05 08:19 | Outpatient (BNVA) | payer OTHER, SELFPAY | PROVIDERS: PCP Internal Medicine; Visit Provider Surgery ==

== ENCOUNTER 2024-01-12 11:37 | Outpatient (AMB) | payer OTHER, SELFPAY ==
--- NOTE | 2024-01-12 10:59 | MHC.AMNUTRGE ---
Intake Intake Visit Reasons: VIDEO F/U SWL Allergies Sulfa (Sulfonamide Antibiotics) Allergy (Intermediate, Verified 01/05/24 12:11) Rash pcn Adverse Reaction (Intermediate, Uncoded 01/05/24 12:11) rash HPI Nutrition Presentation Details FRUIT [employer]IMMER weight 387# current weight 359# Reason for consult elevated BMI Diet Assmnt Details was doing well with previous plan with PA. Is struggling with transition from old plan to current. Mother does 90% of the cooking , requesting her own account so she can learn about how to best support pt Does report hx of emotional eating but is very mindful and aware of it. We talked about coping strategies and seeking support as needed. Uses home equipment. [employer] online classes: completed, scored well. Dietary counseling reduction Who buys your food parent Diagnosis Nutrition problem #1 overweight/obesity As related to (etiology) #1 excess energy intake and physical inactivity As evidenced by (sign/symptom) #1 high BMI Monitoring/Goals Nutrition problem monitoring total energy intake, level of knowledge/skill, total PRO intake, total CHO intake and weight Outcome progress progressing Learning/Education Readiness to learn excellent Stages of change action Educational materials provided Yes Most Recent Diabetes Results: Cholesterol 132 mg/dL (<200) 12/12/23 HDL Cholesterol 17 mg/dL (>40) L 12/12/23 Triglycerides 292 mg/dL (<150) H 12/12/23 Creatinine 1.12 mg/dL (0.5-1.4) 12/12/23 Blood Urea Nitrogen 19 mg/dL (9-16) H 12/12/23 Sodium 139 mmol/L (135-145) 12/12/23 Potassium 4.4 mmol/L (3.3-5.1) 12/12/23 Chloride 100 mmol/L (96-108) 12/12/23 Carbon Dioxide 27 mmol/L (22-29) 12/12/23 Calcium 9.6 mg/dL (8.4-10.2) 12/12/23 AST 46 U/L (5-37) H 12/12/23 ALT 59 U/L (0-40) H 12/12/23 Total Protein 7.6 g/dL (6.5-8.0) 12/12/23 Albumin 4.8 g/dL (3.5-5.0) 12/12/23 [facility] Medical History (Updated 01/05/24 @ 12:28 by Jaspreet Vargas MD) 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 Father No problems noted. Daughter No problems noted. Social History (Updated 12/01/23 @ 11:03 by Marion Doll CMA) Alcohol intake: current Alcohol intake frequency: holidays/special occasions only Patient Tobacco Use Status: Never used Tobacco Assessment & Plan Assessment & Plan (1) Morbid obesity: Code(s): E66.01 - Morbid (severe) obesity due to excess calories Plan ptis cleared from a nutrition standpoint for bariatric surgery. Encouraged the use of support services following bariatric surgery Telehealth Telehealth Location of provider rendering services: other (home address , [facility] ) Location of patient: address on file Patient Identification confirmed using: Name, : Yes Telehealth method: voice only Patient verbally consented to treatment: Yes Patient verbally consented to billing insurance company: Yes Patient informed of any privacy concerns related to visit: Yes Minutes spent on Phone/Video with Pt.: 25 Coding Level of Care Code Nutr Indiv Subseq ([id number]) Diagnoses Morbid obesity E66.01 Time Spent (min) 25
== END 2024-01-12 12:01 | disposition home or self-care (01) ==
LOC: HO.HBS 11:37
PROVIDERS: PCP Internal Medicine; Visit Provider Dietitian, Registered
DX: E66.01 Morbid (severe) obesity due to excess calories (principal)

== ENCOUNTER → 2024-01-12 11:37 | Outpatient (BNVA) | payer OTHER, SELFPAY | PROVIDERS: PCP Internal Medicine; Visit Provider Dietitian, Registered | DX: E66.01 Morbid (severe) obesity due to excess calories (principal); Z71.3 Dietary counseling and surveillance | CPT/HCPCS: 97803 ==

== ENCOUNTER 2024-01-26 09:18 | Outpatient (REF) | payer OTHER, SELFPAY ==
--- NOTE | ~2024-01-26 | FL_ITS ---
EXAMINATION: XR FLUOROSCOPY UPPER GI WITH AIR CLINICAL INFORMATION: Preop evaluation prior to bariatric surgery COMPARISON: None TECHNIQUE: Fluoroscopic air contrast upper GI examination was performed utilizing standard techniques with thin and thick barium and effervescent granules. Numerous spot images were obtained. FINDINGS: Dual and single contrast images of the esophagus demonstrate normal caliber, contour, and mucosal pattern. No evidence of stricture, mass, or ulcerations identified. Esophageal peristalsis is mildly disorganized. A wide open, nonobstructing Schatzki's ring is present (RF 108, 80/225). A small type I hiatal hernia is present. Gastroesophageal reflux is seen up to the thoracic inlet. Dual contrast and single contrast images of the stomach demonstrated normal contour and mucosal pattern without evidence of mass, ulceration, or other abnormality. Contrast freely passed into the gastric antrum and duodenal bulb without delay. Single and air-contrast images of the duodenal bulb demonstrate no abnormality. The duodenal sweep has a normal appearance, course, and mucosal fold appearance. The imaged proximal jejunum has a normal fold pattern and caliber. FLUOROSCOPY TIME: 3 minutes 4 seconds Number of Spot Images: 7 Number of Cine: 8 DOSE AREA PRODUCT: 3217 uGy-m2 (microgray-meter squared) FL/FL upper GI w air IMPRESSION: 1. Mildly disorganized esophageal peristalsis 2. A wide open, nonobstructing Schatzki's ring is present 3. Small type I hiatal hernia 4. Moderate gastroesophageal reflux This procedure was performed by Ike Herrera PA-C, and supervised by Dr. Ferreira
== END 2024-01-26 09:19 | disposition home or self-care (01) ==
LOC: HO.XRAY 09:18
PROVIDERS: PCP Internal Medicine; Visit Provider Physician Assistant Surgical
DX: E66.01 Morbid (severe) obesity due to excess calories (principal); E78.00 Pure hypercholesterolemia, unspecified; I10 Essential (primary) hypertension
CPT/HCPCS: 74246

== ENCOUNTER → 2024-01-26 09:20 | Outpatient (BNV) | payer OTHER, SELFPAY | PROVIDERS: PCP Internal Medicine; Visit Provider Physician Assistant Surgical | DX: E66.01 Morbid (severe) obesity due to excess calories (principal); Z01.818 Encounter for other preprocedural examination | CPT/HCPCS: 74246 ==

== ENCOUNTER 2024-02-05 08:05 | Outpatient (AMB) | payer OTHER, SELFPAY ==
[2024-02-04 12:06] VITALS: BMI 52.5
--- NOTE | 2024-02-04 12:06 | A.OFFVIS_ITS ---
Intake VS Expanded 02/04/24 12:06 Height 5 ft 8.5 in Weight 350 lb 8 oz BMI 52.5 Body Fat % 61.2 Body Fat Mass 214.6 Fat Free Mass 136 Visceral Fat Rating 30 Body Water % 28 Body Water Mass 98.2 Basal Metabolic Rate/Score 1,674 Intake Visit Reasons: TV Follow Up SWL - Allergies Sulfa (Sulfonamide Antibiotics) Allergy (Intermediate, Verified 01/05/24 12:11) Rash pcn Adverse Reaction (Intermediate, Uncoded 01/05/24 12:11) rash HPI TV Follow Up SWL - HPI0 Details Start time: 2.50pm, End time: 3.20pm ?I spent 25 minutes speaking with the patient on the phone plus an additional 5 minutes reviewing and updating records for a total of 30 minutes HPI Comments History of Present Illness Details Overall weight loss: 37.1lbs, or 9.56% TBWL Is doing 2 Celebrate Rebuild protein shakes (one with one and one with two scoops in almond milk), two Celebrate protein bars and one meal (14 forks of meat and 14 forks of salad or vegetables) Wakes up a little earlier and has moved the 2nd bar in the morning Exercise: rowing machine and bike for 150 calories each per day, 3 days per week [facility] Medical History (Updated 01/05/24 @ 12:28 by Jaspreet Vargas MD) Lesion of left [place] kidney DJD (degenerative joint disease) Bipolar 1 disorder Anxiety Gout Sleep apnea treated with continuous positive airway pressure (CPAP) Surgical History (Updated 01/05/24 @ 12:17 by Jaspreet Vargas MD) History of parathyroidectomy History of back surgery Family History (Updated 12/01/23 @ 11:04 by Marion Doll CMA) Mother No problems noted. Father No problems noted. Daughter No problems noted. Social History (Updated 12/01/23 @ 11:03 by Marion Doll CMA) Alcohol intake: current Alcohol intake frequency: holidays/special occasions only Patient Tobacco Use Status: Never used Tobacco Physical Exam Vital Signs: BMI result Body Mass Index 52.5 Assessment & Plan Assessment & Plan (1) Morbid obesity: Code(s): E66.01 - Morbid (severe) obesity due to excess calories Plan: 1. Plan for lap sleeve gastrectomy including upper GI endoscopy. All tests has been completed and reviewed and the patient is cleared for the surgery. ?If diaphragmatic or ventral hernias are present at time of surgery, these will be repaired laparoscopically as well. Risks and complications were discussed in detail including possible conversion to an open procedure, anastomotic leak, bleeding requiring transfusion, small bowel obstruction, , DVT and pulmonary embolism, cardiac, or pulmonary complications, as terminal operations supervisor complications such as anastomotic ulcer, insufficient weight loss and vitamin deficiencies. I emphasized the importance of close follow-up, adherence to instructions and good communication. So far she has proven to be an excellent communicator and very compliant with all our directions accomplishing a great weight loss. I believe that she is an excellent candidate and she is ready. 2. The patient participated in a structured preoperative lifestyle intervention program supervised by a physician the 2 months preceding the surgical procedure. The lifestyle intervention included a structured nutritional plan with a specific daily protein intake goal, an exercise plan with a 2000 calorie burn weekly goal, weekly behavior modification guidance and completion of eight 1- hour online nutritional classes and passing successfully the corresponding quizzes. Adherence to preoperative care plan was demonstrated by completing an extensive preoperative work-up. Program participation was demonstrated by completing 4 visits with our medical team and by sharing weekly weight measurements weekly for 9 consecutive weeks via an approved body composition scale. Compliance to the lifestyle intervention was demonstrated by achieving a 37.1lbs weight-loss or 9.56% total body weight loss (TBWL). No medications were used to achieve this weight loss. In our published experience an over 7% preoperative TBWL, achieved by meeting the diet and exercise goals of our program improves surgical outcomes, reduces the potential for surgical complications, and predicts a statistically significant higher weight loss up to 6 years postoperatively. 3. Continue same nutritional plan of 2 Celebrate Rebuild protein shakes (one with one and one with two scoops in almond milk), two Celebrate protein bars and one meal (14 forks of meat and 14 forks of salad or vegetables) 4. Exercise: continue rowing machine and bike for 150 calories each per day 3 of the working days and from 300 calories each the two off days of the week 5. Continue to send me weight measurements weekly on Sundays Telehealth Telehealth Location of provider rendering services: practice address Location of patient: address on file Patient Identification confirmed using: Name, : Yes Telehealth method: voice only Patient verbally consented to treatment: Yes Patient verbally consented to billing insurance company: Yes Patient informed of any privacy concerns related to visit: Yes Minutes spent on Phone/Video with Pt.: 30 Coding Level of Care Code Tele Est Pt Level 4 (34822) Diagnoses Morbid obesity E66.01 Time Spent (min) 30
== END 2024-02-05 23:16 | disposition home or self-care (01) ==
LOC: HO.HBS 08:05
PROVIDERS: PCP Internal Medicine; Visit Provider Surgery
DX: E66.01 Morbid (severe) obesity due to excess calories (principal)
CPT/HCPCS: 99214

== ENCOUNTER → 2024-02-05 08:05 | Outpatient (BNVA) | payer OTHER, SELFPAY | PROVIDERS: PCP Internal Medicine; Visit Provider Surgery | DX: N28.9 Disorder of kidney and ureter, unspecified (principal); E66.01 Morbid (severe) obesity due to excess calories ==

== ENCOUNTER 2024-02-05 08:21 | Outpatient (AMB) | payer OTHER, SELFPAY ==
--- NOTE | 2024-02-05 08:36 | A.OFFWM_ITS ---
Intake Intake Visit Reasons: (TV) BH F/U Allergies Sulfa (Sulfonamide Antibiotics) Allergy (Intermediate, Verified 01/05/24 12:11) Rash pcn Adverse Reaction (Intermediate, Uncoded 01/05/24 12:11) rash PFSH Medical History (Updated 01/05/24 @ 12:28 by Jaspreet Vargas MD) Lesion of left [place] kidney DJD (degenerative joint disease) Bipolar 1 disorder Anxiety Gout Sleep apnea treated with continuous positive airway pressure (CPAP) Surgical History (Updated 01/05/24 @ 12:17 by Jaspreet Vargas MD) History of parathyroidectomy History of back surgery Family History (Updated 12/01/23 @ 11:04 by Marion Doll CMA) Mother No problems noted. Father No problems noted. Daughter No problems noted. Social History (Updated 12/01/23 @ 11:03 by Marion Doll CMA) Alcohol intake: current Alcohol intake frequency: holidays/special occasions only Patient Tobacco Use Status: Never used Tobacco Behavioral Health Assessment Weight Management Therapy Therapy Notes Details Today, patient reported being very nervous, he discussed the surgery and lifestyle changes he has been making. Emotionally feels stable, however still experiences the pain daily of not seeing his daughter, he has been working on not eating in response to boredom or sadness. He has done well in the program. Pt is looking to have weight loss surgery to help improve his health and quality of life. Pt has a long history of depression and some hypomanic episodes. He stated that he sees a nurse practioner (Tania Pressley) for medication, has been diagnosed him with Cyclothymic Disorder. He was seein a therapist in that office but did not find it helpful to recap his past two weeks. He reported one previous inpatient psychiatric admission in 2013 with a stepdown to [facility] program outpatient. Presenting Concerns Referral Source provider Reason for referral weight loss surgery evaluation Precipitating Event obesity Living Situation Current Living Situation Relative's/Guardian's Pilar At risk of losing current housing? No Satisfied with current living situation? Yes Comments Patient lives with his elderly parents. Food/Weight/Diet Expectations of change weight loss and maintenance History/Relationship with food Pt stated that he was often snacking, eating out of boredom or emotional eating. He was eating fast food about several times a week, History/Relationship with weight Pt stated that at his heaviest he was 424lbs, once in his late 20's, then dropped to 275lbs. He stated that he was somewhat always overweight. History/Relationship with dieting various self diets, will be consistent for about 20lbs and then stop. Binge Eating Do you frequently eat large amounts of food in short periods of time, not feeling physically hungry? Yes Do you feel out of control when you eat a large amount of food in a short period of time? No Do you eat large amounts of food rapidly and typically alone? No Night Eating Do you wake up at least once during the night to eat? No If you wake up in the night, do you find that it is necessary to eat something in order to fall back asleep? No Do you have little or no appetite in the morning and feel very hungry in the evening, often overeating between dinner and when you go to bed? No Social History Family history and relationship Pt is and has one child who is ten years old who he does not get to see. He lives with his parents. Pt is one of three siblings raised by both his parents. Parental/Familial biometric fingerprinting technician obligations elderly parents Developmental history and status none Social support sister, brother, mother Cultural/Ethnic information Legal Involvement and History Current or historical involvement with the legal system? none Education Highest grade completed some college Preferred learning style Auditory, Verbal, Written, Learn by doing and Visual Currently enrolled in educational program? No Interested in further educational program? 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 No Meaningful activities Has a membership to the [employer] Financial Situation Describe current financial situation Occasional struggle Financial assistance? None Service Service? No Mental Health and Addiction Treatment Current/Past substance abuse? No Current/Past addictive behavior concerns? No Medical and Physical Health Summary Physical exam in the last year? Yes Pain Screening Current pain? No Pain in the last few months? No Medications Is the patient compliant with medications? Yes Does the patient have Victoria Guardian in place? Not applicable Does the patient use complimentary health approaches? No Trauma/Abuse History History of trauma? Yes Assessment & Plan Assessment & Plan (1) Depression, unspecified: Code(s): F32.A - Depression, unspecified (2) Morbid obesity: Code(s): E66.01 - Morbid (severe) obesity due to excess calories Plan He reported a history of depression for most of his life, on medication and was in therapy in the past. He stated that he is very mindful of when he is struggling and has been working on not turning to food. He has done very well in the program and is cleared for surgery. Patient will be seen again after surgery. Telehealth Telehealth Location of provider rendering services: other Location of patient: other Patient Identification confirmed using: Name, : Yes Telehealth method: voice only Patient verbally consented to treatment: Yes Patient verbally consented to billing insurance company: Yes Patient informed of any privacy concerns related to visit: Yes Minutes spent on Phone/Video with Pt.: 25 Coding Level of Care Code Tele Psytx 30 mins (92019) Diagnoses Depression, unspecified F32.A Morbid obesity E66.01 Time Spent (min) 25
== END 2024-02-05 08:44 | disposition home or self-care (01) ==
LOC: HO.HBST 08:21
PROVIDERS: PCP Internal Medicine; Visit Provider Counselor Mental Health
DX: F32.A Depression, unspecified (principal); E66.01 Morbid (severe) obesity due to excess calories
CPT/HCPCS: 90832

== ENCOUNTER 2024-02-09 12:36 | Outpatient (REF) | payer OTHER, SELFPAY ==
--- NOTE | ~2024-02-09 | CT_ITS ---
EXAMINATION: CT ABDOMEN AND PELVIS WITHOUT CONTRAST CLINICAL INFORMATION: Disorder of kidney and ureter COMPARISON: Ultrasound abdomen 12/29/2023: 1.2 x 1.0 x 0.9 cm, homogeneously hypoechoic, exophytic left upper pole renal lesion which does not clearly demonstrate increased through transmission, therefore incompletely characterized on the current ultrasound examination. Recommend with and without MRI or with and without CT scan for further evaluation. CT abdomen 09/13/2007 MRI lumbar spine 04/28/2022 TECHNIQUE: Multidetector volumetric imaging was performed from the superior aspect of the liver through the pubic symphysis. Sagittal and coronal reformatted images were obtained on the technologist's workstation. This CT examination was performed using dose optimization techniques as appropriate, variously including the following: *Automated exposure control *Adjustment of mA and/or kV according to patient size (this includes techniques or standardized protocols for targeted exams where dose is matched to indication/reason for exam; i.e. extremities or head) *Use of iterative reconstruction technique DLP: 1152 mGy-cm FINDINGS: LUNG BASES: The visualized lung bases are unremarkable. LIVER, GALLBLADDER, AND BILIARY TREE: The liver is normal in size, shape, and attenuation. No focal hepatic lesion or biliary ductal dilatation is present. The gallbladder is unremarkable with no evidence of radiopaque gallstones, gallbladder wall thickening, or obvious pericholecystic inflammatory changes. PANCREAS: Unremarkable. SPLEEN: Unremarkable. ADRENAL GLANDS: Unremarkable. KIDNEYS AND URETERS: The kidneys are normal in size, shape, and attenuation. No hydronephrosis, hydroureter, or calculi seen. No perinephric stranding. Corresponding to the abnormality seen on the ultrasound, there is a left renal cortical exophytic 1.1 cm mass is seen. This mass is small and on this CT scan has attenuation coefficients varying from that the fluid density. The adjacent normal renal parenchyma also has attenuation coefficients which is most likely secondary to technique. On the CT scan from August 2007, and of this mass can be seen but slice thickness is such that this cannot be said with confidence (prior CT 102:74). On the prior lumbar MRI, this region of the kidney is not included on the scan. No other definite renal masses are seen. BLADDER: Unremarkable. GASTROINTESTINAL TRACT: The small and large bowel are unremarkable. The appendix is unremarkable. ABDOMINAL WALL: There is a small left inguinal hernia seen containing only fat. LYMPH NODES: No retroperitoneal lymphadenopathy. VASCULAR: Unremarkable. PELVIC VISCERA: There is mild BPH. Seminal vesicles appear normal. OSSEOUS STRUCTURES: Degenerative changes are present in the spine. CT/CT abdomen pelvis wo IV con IMPRESSION: 1. The left renal mass seen on ultrasound has a corresponding 1.[address] abnormality [address] this CT scan. Evaluation is not optimal because of lack of IV contrast which was recommended at the time of the ultrasound exam. This is not a simple cyst. The best exam for characterization, especially given its small size, would be pre and postcontrast MRI. The most likely diagnosis would be a complex cyst. Given its small size of just over 1 cm, a follow-up ultrasound exam in one years' time would not be unreasonable way to proceed as well. 2. Incidental note made of mild BPH and small left inguinal hernia containing only fat. Fleischner guidelines were followed.
== END 2024-02-09 12:37 | disposition home or self-care (01) ==
LOC: HO.CT 12:36
PROVIDERS: Visit Provider Surgery
DX: N28.9 Disorder of kidney and ureter, unspecified (principal)
CPT/HCPCS: 74176

== ENCOUNTER 2024-02-21 10:55 | Day surgery (SDC) | payer OTHER, SELFPAY ==
[2024-02-19 11:41] VITALS: BMI 52.4
--- NOTE | 2024-02-19 13:08 | HO.ANESPROP2 ---
Documented by User: Halina Loredo NP 02/19/24 13:09 HPI - Anesthesia Eval Consult details Narrative: 48yo M for Upper Endoscopy PMFSH Active Problems Active Problems: All Active Problems Lesion of left [place] kidney (Acute) DJD (degenerative joint disease) (Acute) Bipolar 1 disorder (Acute) Anxiety (Acute) Gout (Acute) Sleep apnea treated with continuous positive airway pressure (CPAP) (Acute) Depression, unspecified (Acute) Abnormal EKG (Acute) Left foot drop (Acute) Morbid obesity (Acute) Hypercholesterolemia (Acute) HTN (hypertension) (Acute) Past Medical History Medical History Lesion of left [place] kidney DJD (degenerative joint disease) Bipolar 1 disorder Anxiety Gout Sleep apnea treated with continuous positive airway pressure (CPAP) Family History Family History Mother No problems noted. Father No problems noted. Daughter No problems noted. Surgical History Surgical History History of parathyroidectomy History of back surgery Social History Social History Alcohol intake: current Alcohol intake frequency: holidays/special occasions only Patient Tobacco Use Status: Never used Tobacco Use of substances other than those prescribed or required for medical reasons: No Are you DNR?: No Advance Directives: No Advance Directives Information Provided: Yes Meds Allergies Allergy/AdvReac Type Severity Reaction Status Date / Time Sulfa (Sulfonamide Allergy Intermediate Rash Verified 02/21/24 11:53 Antibiotics) pcn AdvReac Intermediate rash Uncoded 02/21/24 11:53 Home Medications ?Medication ?Instructions ?Recorded ?Confirmed ?Last Taken ?Type citalopram 10 mg tablet 10 mg PO DAILY 10/24/23 02/21/24 02/20/24 History lisinopril 10 1 tab PO DAILY 10/24/23 02/21/24 02/20/24 History mg-hydrochlorothiazide 12.5 mg tablet lurasidone 60 mg tablet (Latuda) 60 mg PO DAILY 10/24/23 02/21/24 02/20/24 History meloxicam 15 mg tablet 15 mg PO DAILY 10/24/23 02/21/2424 History rosuvastatin 5 mg tablet 5 mg PO DAILY 10/24/23 02/21/24 02/20/24 History allopurinol 300 mg tablet 300 mg PO DAILY 01/04/24 02/21/24 02/20/24 History bupropion HCl 300 mg 24 hr tablet, 300 mg PO DAILY 01/04/24 02/21/24 02/20/24 History extended release lorazepam 0.5 mg tablet 0.5 mg PO DAILY PRN 01/04/24 01/05/24 Unknown History oxcarbazepine 600 mg 600 mg PO BID 01/04/24 02/21/24 02/20/24 History tablet,extended release 24 hr quetiapine 200 mg tablet 200 mg PO BEDTIME 01/04/24 02/21/24 02/20/24 History quetiapine 25 mg tablet 25 mg PO .prn 01/04/24 02/21/24 02/20/24 History Exam Height,Weight and Vital Signs: Height 5 ft 8.5 in Weight 158.757 kg Pertinent Lab Results Pertinent Lab Results: Laboratory Tests 12/12/23 11:59 WBC 5.5 Hgb 14.6 Hct 43.5 Plt Count 195 Sodium 139 Potassium 4.4 Chloride 100 Carbon Dioxide 27 BUN 19 H Creatinine 1.12 Narrative Narrative: EKG 11/2023 Vent. Rate : 081 BPM Atrial Rate : 081 BPM P-R Int : 252 ms QRS Dur : 102 ms QT Int : 374 ms P-R-T Axes : 069 -16 027 degrees QTc Int : 434 ms Sinus rhythm with 1st degree A-V block Inferior infarct , age undetermined Abnormal ECG No previous ECGs available NM cardiolite stress test 12/2023 Impression: 1. Myocardial perfusion imaging study shows likely normal myocardial perfusion 2. Gated LVEF is 58% 3. Transient ischemic dilatation not present EKG is nondiagnostic for ischemia Assessment and Plan Assessment Anesthesia Assessment: Chart Reviewed Documented by User: Domenica Delcid MD 02/21/24 12:28 PMFSH Past Medical History Medical History Lesion of left [place] kidney DJD (degenerative joint disease) Bipolar 1 disorder Anxiety Gout Sleep apnea treated with continuous positive airway pressure (CPAP) Family History Family History Mother No problems noted. Father No problems noted. Daughter No problems noted. Family history of problems with anesthesia: No Surgical History Surgical History History of parathyroidectomy History of back surgery History of Problems with Anesthesia: No Social History Social History Alcohol intake: current Alcohol intake frequency: holidays/special occasions only Patient Tobacco Use Status: Never used Tobacco Use of substances other than those prescribed or required for medical reasons: No Are you DNR?: No Advance Directives: No Advance Directives Information Provided: Yes Meds Allergies Allergy/AdvReac Type Severity Reaction Status Date / Time Sulfa (Sulfonamide Allergy Intermediate Rash Verified 02/21/24 11:53 Antibiotics) pcn AdvReac Intermediate rash Uncoded 02/21/24 11:53 Home Medications ?Medication ?Instructions ?Recorded ?Confirmed ?Last Taken ?Type citalopram 10 mg tablet 10 mg PO DAILY 10/24/23 02/21/24 02/20/24 History lisinopril 10 1 tab PO DAILY 10/24/23 02/21/24 02/20/24 History mg-hydrochlorothiazide 12.5 mg tablet lurasidone 60 mg tablet (Latuda) 60 mg PO DAILY 10/24/23 02/21/24 02/20/24 History meloxicam 15 mg tablet 15 mg PO DAILY 10/24/23 02/21/24 02/20/24 History rosuvastatin 5 mg tablet 5 mg PO DAILY 10/24/23 02/21/24 02/20/24 History allopurinol 300 mg tablet 300 mg PO DAILY 01/04/24 02/21/24 02/20/24 History bupropion HCl 300 mg 24 hr tablet, 300 mg PO DAILY 01/04/24 02/21/24 02/20/24 History extended release lorazepam 0.5 mg tablet 0.5 mg PO DAILY PRN 01/04/24 01/05/24 Unknown History oxcarbazepine 600 mg 600 mg PO BID 01/04/24 02/21/24 02/20/24 History tablet,extended release 24 hr quetiapine 200 mg tablet 200 mg PO BEDTIME 01/04/24 02/21/24 02/20/24 History quetiapine 25 mg tablet 25 mg PO .prn 01/04/24 02/21/24 02/20/24 History Exam Height,Weight and Vital Signs: Height 5 ft 8.5 in Weight 158.757 kg Vital Signs Temp Pulse Resp BP Pulse Ox O2 Del Method 02/21/24 12:06 97.7 F 85 16 129/50 L 98 Room Air Airway Mallampati Class: III TM Dist: >3cm Neck ROM: Full Loose/Missing/Broken Teeth: Yes ( Broken teeth top front. Some missing. No loose teeth ) Heart: RRR Lungs: CTAB Assessment and Plan Assessment Anesthesia Assessment: Anesthesia Plan Discussed and Chart Reviewed Final Anesthetic Review Family History of Problems with Anesthesia: No History of Problems with Anesthesia: No NPO: Yes ASA Class: III Final Preanesthetic Review: No Changes in Pt Med Stat, Meds/Allgs Chart Reviewed, Consent Obtained/Reviewed and Anes Risks/Benef Reviewed Patient Risk: Intermediate Procedure Risk: Low Assessment/Block/Sedation in SS: Assess/Block/Sedation-SS Anesthetic Plan Anesthetic Plan: MAC: and TIVA Disposition: Standard PACU
[2024-02-21 11:50] VITALS: BMI 52.1
[2024-02-21 12:06] VITALS: BP 129/50; PULSE 85; RESP 16; TEMP 36.5; O2SAT 98
--- NOTE | 2024-02-21 12:11 | MHC.SHP ---
Pre-Procedural Eval Section A - 24 Hr Update-Section A only Date of Service: 02/21/24 The patient is an INPATIENT: No The patient has been examined within 24 hours of the surgical procedure. The History & Physical has been completed within 30 days and I have reviewed it.: Yes Section B - Complete if H&P > 30 days Chief Complaint: Morbid (severe) obesity due to excess calories Details of Present Illness: GERD Relevant Family History (Specify if Yes): No Relevant Social History: None Present Medications: None Medical History: No relevant PMH History of Previous Operations: No relevant previous surgery Allergies: Allergies Allergy/AdvReac Type Severity Reaction Status Date / Time Sulfa (Sulfonamide Allergy Intermediate Rash Verified 02/21/24 11:53 Antibiotics) pcn AdvReac Intermediate rash Uncoded 02/21/24 11:53 Review of Systems Sugical H&P ROS: Negative: Constitution, Cardiovascular, Respiratory, Neurological, Psychiatric, Hem-Onc, Allergic/Immunologic, Gastrointestinal, Genitourinary, Musculoskeletal, Integumentary, Endocrine and Eyes/Ears/Nose/Throat Exam Surgical H&P Exam: Normal: HEENT, Normal: Heart, Normal: Lungs, Normal: Extremities, Normal: Abdomen, Normal: Skin and Normal: Neurological Plan Diagnosis/Plan: Unchanged (EGD to assess etiology of GERD. Risks of bleeding and perforation were discussed with the patient and he is in agreement with the plan.) I have reviewed the history and physical and performed a pertinent physical examination on my patient. No changes have occurred unless specified. Time Spent With Patient Time: Total time managing care of this patient today ____ minutes.
[2024-02-21] MEDS: Lactated Ringers 1,000 ML 80 ML IVCONT (12:12)
--- NOTE | 2024-02-21 12:16 | P.BOP_ITS ---
Brief Operative Note Date of Service: 02/21/24 Pre-op diagnosis: GERD and hiatal hernia Post-op diagnosis: same Procedure: PROCEDURE DATE: 02/21/2024 PREOPERATIVE DIAGNOSIS: GERD POSTOPERATIVE DIAGNOSIS: ?Same as above. Normal endoscopy PROCEDURE: Oqbmqizh-chjyow-oricdlluuwvn with biopsies Surgeon: ?Tang Vargas M.D.. Ph.D. Drug Safety Physician: None ? Anesthesia: IV sedation Estimated blood loss: ?Minimal FINDINGS AND PROCEDURE: ? OPERATIVE INDICATIONS: ?The patient is a 48 year old male known to me who is interested in bariatric surgery. The patient has GERD and a hiatal hernia based on the recent UGI. Based on this information I recommended an upper endoscopy to evaluate the patient's symptoms. Risks and complications of the surgery were discussed with the patient in advance particularly the possibility of perforation or bleeding that may require surgical intervention. The patient understood the risks and was in agreement with the plan. ? PROCEDURE: After informed consent was obtained by the patient, the patient was ?transferred to the Operating Room and was placed in the supine position.? After successful induction of IV sedation, a mouth block was inserted and the patient was placed in the left lateral decubitus position. An upper endoscopy was performed next, the oropharynx and esophagus appeared within the normal limits. There was no significant hiatal hernia. The z-line was smooth. Two biopsies were obtained from the distal esophagus 2-3 cm proximal to the GE junction and two additional biopsies from the GE junction. The stomach was entered and it appeared to be of normal size. There was no gastritis. There was no stricture or ulcer. A biopsy was obtained from the gastric fundus and the antrum. No significant bleeding was noted from any of the biopsy sites. Retroflexion of the scope revealed no pathology at the gastric fundus and a normal GE junction. The scope was then advanced into the duodenum which appeared to be normal as well. At that point the duodenum ?and the stomach were decompressed and the scope was withdrawn from the patient's mouth. The patient extubated and was transferred in stable condition to the Recovery Room for further care. I was present and performed all steps of the procedure. There were no residents to assist with this case. Tang Vargas M.D., Ph.D. Surgeon: Jaspreet Vargas MD Anesthesia: MAC Was an Drug Safety Physician used for this Procedure?: No Estimated blood loss (mL): 0 IV fluids (mL): 400 Urine output (mL): 0 (No Baldwin to record output) Pathology: other (1) antrum x1, 2) fundus x1, 3) GE junction x2, 4) distal esophagus x2) Condition: stable Disposition: PACU
[2024-02-21 12:40] VITALS: BP 125/84; PULSE 77; RESP 12; TEMP 36.6; O2SAT 98
[2024-02-21 12:55] VITALS: BP 122/81; PULSE 81; RESP 14; TEMP 36.6; O2SAT 98
[2024-02-21 13:10] VITALS: BP 115/82; PULSE 78; RESP 16; TEMP 36.6; O2SAT 99
== END 2024-02-21 13:30 | disposition home or self-care (01) ==
PROVIDERS: PCP Internal Medicine; Visit Provider Surgery
PROC: 0DJ08ZZ Inspection of Upper Intestinal Tract, Via Natural or Artificial Opening Endoscopic (ICD-10-PCS; CPT 43235; principal; 2024-02-21 13:20)
DX: K21.9 Gastro-esophageal reflux disease without esophagitis (principal); E66.01 Morbid (severe) obesity due to excess calories; Z68.43 Body mass index [BMI] 50.0-59.9, adult; K44.9 Diaphragmatic hernia without obstruction or gangrene; I10 Essential (primary) hypertension; F31.9 Bipolar disorder, unspecified; M10.9 Gout, unspecified; G47.33 Obstructive sleep apnea (adult) (pediatric); Z99.89 Dependence on other enabling machines and devices; Z79.899 Other long term (current) drug therapy; Z88.0 Allergy status to penicillin; Z88.2 Allergy status to sulfonamides; Z98.890 Other specified postprocedural states
CPT/HCPCS: 43239; 88305; 88313; 88342; J2704

== ENCOUNTER → 2024-02-21 10:55 | Outpatient (BNV) | payer OTHER, SELFPAY | PROVIDERS: PCP Internal Medicine; Visit Provider Surgery | DX: K21.9 Gastro-esophageal reflux disease without esophagitis (principal) | CPT/HCPCS: 43239 ==

== ENCOUNTER 2024-02-26 08:58 | Outpatient (AMB) | payer OTHER, SELFPAY ==
--- NOTE | 2024-02-26 10:48 | A.OFFVIS_ITS ---
VS Expanded 02/26/24 11:00 Height 5 ft 8.5 in Weight 345 lb 6 oz BMI 51.7 Body Fat % 60.1 Body Fat Mass 207.7 Fat Free Mass 128 Visceral Fat Rating 30 Body Water % 28.8 Body Water Mass 99.5 Basal Metabolic Rate/Score 1,721 Intake Visit Reasons: TV Pre Op LSG 03/14/24 Allergies Sulfa (Sulfonamide Antibiotics) Allergy (Intermediate, Verified 02/26/24 10:48) Rash pcn Adverse Reaction (Intermediate, Uncoded 02/26/24 10:48) rash Medication List - Last Reconciled 02/26/24 by Jaspreet Vargas MD allopurinol 300 mg PO DAILY bupropion HCl XL 300 mg PO DAILY cholecalciferol (vitamin D3) 125 mcg PO DAILY 90 days citalopram 10 mg PO DAILY lisinopril-hydrochlorothiazide 10-12.5 mg 1 tab PO DAILY lorazepam 0.5 mg PO DAILY PRN lurasidone (Latuda) 60 mg PO DAILY meloxicam 15 mg PO DAILY ondansetron 4 mg PO Q6H PRN oxcarbazepine ER 600 mg PO BID pantoprazole 40 mg PO DAILY polyethylene glycol 3350 (Miralax) 17 grams PO DAILY quetiapine 200 mg PO BEDTIME quetiapine 25 mg PO .prn rosuvastatin 5 mg PO DAILY sucralfate 10 mL PO BID thiamine HCl (vitamin B1) 100 mg PO DAILY 90 days HPI HPI TV Pre Op LSG 03/14/24: Details: Start time: 10.41am, End time: 11.11am ?I spent 25 minutes speaking with the patient on the phone plus an additional 5 minutes reviewing and updating records for a total of 30 minutes HPI Comments Details: Overall weight loss: 42.3lbs, or 10.9% TBWL Is doing 2 Celebrate Rebuild protein shakes (one with 1 scoop and one with 2 scoops in almond milk), 2 Celebrate protein bars and one meal (14 forks of protein and 14 forks of salad or vegetables) Exercise: is doing 300 calories daily on bike and rowing machine PFSH Medical History 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 Father No problems noted. Daughter No problems noted. Social History Alcohol intake: current Alcohol intake frequency: holidays/special occasions only Patient Tobacco Use Status: Never used Tobacco Telehealth Telehealth Telehealth Platform: Telephone Location of provider rendering services: practice address Location of patient: address on file Patient Identification confirmed using: Name, : Yes Telehealth method: voice only Patient verbally consented to treatment: Yes Patient verbally consented to billing insurance company: Yes Patient informed of any privacy concerns related to visit: Yes Minutes spent on Phone/Video with Pt.: 30 Assessment & Plan Assessment & Plan (1) Morbid obesity: Code(s): E66.01 - Morbid (severe) obesity due to excess calories Category: Medical Plan: 1. Plan for lap sleeve gastrectomy including upper GI endoscopy. All tests has been completed and reviewed and the patient is cleared for the surgery. ?If diaphragmatic or ventral hernias are present at time of surgery, these will be repaired laparoscopically as well. Risks and complications were discussed in detail including possible conversion to an open procedure, anastomotic leak, bleeding requiring transfusion, small bowel obstruction, , DVT and pulmonary embolism, cardiac, or pulmonary complications, as oil heaterman complications such as anastomotic ulcer, insufficient weight loss and vitamin deficiencies. I emphasized the importance of close follow-up, adherence to instructions and good communication. So far he has proven to be an excellent communicator and very compliant with all our directions accomplishing a great weight loss. I believe that he is an excellent candidate and he is ready. 2. Preop prescriptions were provided and explained the purpose of each one. Need to be purchased preop. Start Pantoprazole now as you get it from the pharmacy, 1 pill per day. Sucralfate and Zofran are for after surgery as needed. 3. Bowel prep: please do 7 packets ?of Miralax mixing each one with a an 8oz glass of water, crystal light, gatorade zero, or propel ?on 03/10/24 and the same amount on 03/11/24. The Miralax you begin with one packet at a time in 8oz water or crystal light, gatorade zero, or propel ?as early in the day as you can and you do them back to back until you finish them. Continue the protein shakes during? the bowel prep. 4. Needs to purchase 1oz medicine cups . 5. Needs to purchase Children's liquid Tylenol for postop pain control. 6. He needs to stop the MELOXICAM as of today. Avoid aspirin, motrin, Advil, Aleve, Ibuprofen, Naproxyn. Tylenol is OK. 7. He needs to purchase the Celebrate 4:1 protein shakes from the hospital's gift shop. 8. Will do basic preop blood work-up any day between Monday03/04/24 and Monday03/08/24 fasting for 12 hours and is scheduled to see the Anesthesiologist prior to the day of surgery. 9. Importance of adherence to postop folllow-up and recommendations was underscored and he understands that. 10. Stop food and bars as of today 02/26/24 and continue with 5 Celebrate REBUILD protein shakes (TWO scoops EACH in 8-16oz almond milk) at 6am-8am, 9am-11am, 12pm-2pm, 3pm-5pm and 6pm-8pm 11. No soups, broths or V8 12. The patient's?medical?history has been reviewed and they are considered low risk for post op DVT and therefore DVT prophylaxis is not considered necessary. Travel after surgery was reviewed. The patient has not disclosed any travel plans during the first 30 days after surgery and they have been advised that within the first 30 days after surgery any bus, plane, train or car travel over 2 hours in duration is contraindicated due to the possibility of developing blood clots from immobility. Any travel, needs to include periods of ambulation of 10 minutes in duration every 2 hours.? Patient was instructed to discuss any plans for travel during this period with their bariatric surgeon.? 13. Use your CPAP daily and bring it to the hospital with your mask 14. Please take at the day of surgery the following medications: Only the Lisinopril and Hydrochlorothiazide based on the parameters above 15. Absolutely no smoking or vaping, or marijuana until the surgery and for at least the first 4 weeks. Only nicotine patches are allowed. 16. Send me weight measurements on Monday03/02/24 and 03/09/24 and then on Monday03/12/24, the day of surgery before you go to the hospital. 17. Avoid any steroids by mouth for any reason. Let me know if someone prescribes them to you 18. These instructions supersede anything else you read in the handbook, anything you watched in videos or classes or you were told by any other provider. If there is any conflict, you follow the above instructions and nothing else. Orders: Orders C Reactive Protein Today E66.01 - Morbid (severe) obesity due to excess calories, E78.00 - Pure hypercholesterolemia, unspecified, I10 - Essential (primary) hypertension Complete Blood Count Auto Diff Today E66.01 - Morbid (severe) obesity due to excess calories, E78.00 - Pure hypercholesterolemia, unspecified, I10 - Essential (primary) hypertension Comprehensive Met. Panel Today E66.01 - Morbid (severe) obesity due to excess calories, E78.00 - Pure hypercholesterolemia, unspecified, I10 - Essential (primary) hypertension TSH reflex Free T4 Today E66.01 - Morbid (severe) obesity due to excess calories, E78.00 - Pure hypercholesterolemia, unspecified, I10 - Essential (primary) hypertension Prothrombin Time INR Today E66.01 - Morbid (severe) obesity due to excess calories, E78.00 - Pure hypercholesterolemia, unspecified, I10 - Essential (primary) hypertension Type and Screen Today E66.01 - Morbid (severe) obesity due to excess calories, E78.00 - Pure hypercholesterolemia, unspecified, I10 - Essential (primary) hypertension Partial Thromboplastin Time Today E66.01 - Morbid (severe) obesity due to excess calories, E78.00 - Pure hypercholesterolemia, unspecified, I10 - Essential (primary) hypertension Lipid Panel Today E66.01 - Morbid (severe) obesity due to excess calories, E78.00 - Pure hypercholesterolemia, unspecified, I10 - Essential (primary) hypertension Hemoglobin A1c Today E66.01 - Morbid (severe) obesity due to excess calories, E78.00 - Pure hypercholesterolemia, unspecified, I10 - Essential (primary) hypertension Insulin Today E66.01 - Morbid (severe) obesity due to excess calories, E78.00 - Pure hypercholesterolemia, unspecified, I10 - Essential (primary) hypertension Medications: New sucralfate 10 mL PO BID 600 mL 2RF K21.9 - Gastro-esophageal reflux disease without esophagitis ondansetron Only take one every 12 hours as needed if you have nausea 4 mg PO Q6H PRN 20 tabs 0RF nausea and vomiting R11.0 - Nausea polyethylene glycol 3350 (Miralax) Mix each packet with 8oz of water, Crystal light, or Gatorade zero, or Propel and do 7 packets on 03/10/24 and another 7 packets on 03/11/24 17 grams PO DAILY 14 ea 0RF Z01.818 - Encounter for other preprocedural examination pantoprazole 40 mg PO DAILY 90 tabs 0RF K21.9 - Gastro-esophageal reflux d isease without esophagitis
[2024-02-26 11:00] VITALS: BMI 51.7
== END 2024-02-26 11:11 | disposition home or self-care (01) ==
LOC: HO.HBS 08:58
PROVIDERS: PCP Internal Medicine; Visit Provider Surgery
DX: E66.01 Morbid (severe) obesity due to excess calories (principal)
CPT/HCPCS: 99214

== ENCOUNTER → 2024-02-26 08:58 | Outpatient (BNVA) | payer OTHER, SELFPAY | PROVIDERS: PCP Internal Medicine; Visit Provider Surgery ==

== ENCOUNTER → 2024-03-08 10:12 | Outpatient (BNVA) | payer OTHER, SELFPAY | PROVIDERS: PCP Internal Medicine; Visit Provider Surgery ==

== ENCOUNTER 2024-03-12 05:55 | Inpatient (IN) | payer OTHER, SELFPAY ==
[2024-03-01 13:46] VITALS: BMI 51.7
[2024-03-08 10:11] LABS: MANUAL DIFF FLAG NO
[2024-03-08 10:42] LABS: Basophils Percent Auto 0.5 % (0-2); Eosinophils Absolute Auto 0.1 X10*3/uL (0.0-0.4); Eosinophils Percent Auto 1.4 % (0-4); Hematocrit 42.5 % (42.0-52.0); Hemoglobin 14.7 g/dl (14.0-18.0); Imm Gran Abs Auto 0.01 X10*3/uL (0.00-0.03); Imm Gran Pct Auto 0.2 % (0.0-0.4); Lymphocytes Absolute Auto 1.6 X10*3/uL (1.2-4.9); Lymphocytes Percent Auto 27.4 % (20-40); Mean Corpuscular HGB Conc 34.6 g/dl (31.0-36.0); Mean Corpuscular Hemoglobin 30.6 pg (27.0-33.0); Mean Corpuscular Volume 88.5 fL (80.0-98.0); Mean Platelet Volume 11.3 fL (9.4-12.4); Monocytes Absolute Auto 0.4 X10*3/uL (0.1-1.2); Monocytes Percent Auto 7.3 % (2-11); Neutrophils Absolute Auto 3.7 x10*3/uL (2.0-8.3); Neutrophils Percent Auto 63.2 % (45-73); Platelet Count 196 X10*3/uL (160-400); Red Cell Distribution Width 13.2 % (11.0-16.0); White Blood Count 5.9 X10*3/uL (4.8-10.8)
[2024-03-08 10:45] LABS: Prothrombin Time 12.3 SEC (11.1-13.3)
[2024-03-08 10:47] LABS: Partial Thromboplastin Time 32.6 SEC (26.0-36.8)
[2024-03-08 10:49] LABS: Estimated Average Glucose 94 mg/dL; Hemoglobin A1c % 4.9 % (<6.0)
[2024-03-08 11:33] LABS: Alanine Aminotransferase 36 U/L (0-40); Albumin Level 4.7 g/dL (3.5-5.0); Alkaline Phosphatase 59 U/L (39-117); Anion Gap 15 (12-20); Aspartate Amino Transferase 26 U/L (5-37); Bilirubin Total 0.5 mg/dL (0.0-1.0); Blood Urea Nitrogen 15 mg/dL (9-16); C Reactive Protein 0.94 mg/dL (< or = 0.50); Calcium 9.6 mg/dL (8.4-10.2); Carbon Dioxide 26 mmol/L (22-29); Chloride 100 mmol/L (96-108); Cholesterol 94 mg/dL (<200); Creatinine Clr Calc Pharmacy 128.3; Estimated Glomerular Filt Rate > 60; Glucose Random 82 mg/dL (60-115); HDL Cholesterol 17 mg/dL (>40); LDL Cholesterol Calculated 34 mg/dL (<100); Sodium 137 mmol/L (135-145); Total Protein 7.5 g/dL (6.5-8.0); Triglycerides 218 mg/dL (<150)
[2024-03-08 11:34] LABS: Insulin 17 uU/mL (2-29)
--- NOTE | 2024-03-11 09:31 | HO.ANESPROP2 ---
HPI - Anesthesia Eval Consult details Narrative: 49yo M for Gastrectomy Sleeve,EGD,possible diaphragmatic hernia,possible ventral hernia,possible open, PMFSH Active Problems Active Problems: All Active Problems Depression, unspecified (Acute) Abnormal EKG (Acute) Left foot drop (Acute) Morbid obesity (Acute) Hypercholesterolemia (Acute) HTN (hypertension) (Acute) Lesion of left [place] kidney (Acute) DJD (degenerative joint disease) (Acute) Bipolar 1 disorder (Acute) Anxiety (Acute) Gout (Acute) Sleep apnea treated with continuous positive airway pressure (CPAP) (Acute) Past Medical History Medical History (Updated 03/01/24 @ 13:52 by Amy Momin, RN) Hx of renal calculi Depression Foot drop, left 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 Father No problems noted. Daughter No problems noted. Family history of problems with anesthesia: No Surgical History Surgical History (Updated 03/01/24 @ 13:51 by Amy Momin, OLIVER) History of esophagogastroduodenoscopy (EGD) (02/21/24) History of parathyroidectomy History of back surgery History of Problems with Anesthesia: No Social History Social History (Updated 03/01/24 @ 13:53 by Amy Momin, OLIVER) Household Members: [facility] Are you a primary healthcare business analyst to a significant other at home: No Do you presently have visiting nurse or other home services: No 75 years or older and lives alone: No Alcohol intake: current Alcohol intake frequency: holidays/special occasions only Patient Tobacco Use Status: Former Tobacco user Quit Date: 1994 Tobacco use type: Cigarette Years Smoked: 1 Meds Allergies Allergy/AdvReac Type Severity Reaction Status Date / Time Sulfa (Sulfonamide Allergy Intermediate Rash Verified 03/08/24 10:44 Antibiotics) pcn AdvReac Intermediate rash Uncoded 03/08/24 10:44 Home Medications ?Medication ?Instructions ?Recorded ?Confirmed ?Last Taken ?Type citalopram 10 mg tablet 10 mg PO DAILY 10/24/23 03/01/24 02/20/24 History lisinopril 10 1 tab PO DAILY 10/24/23 03/01/24 02/20/24 History mg-hydrochlorothiazide 12.5 mg tablet lurasidone 60 mg tablet (Latuda) 60 mg PO DAILY 10/24/23 03/01/24 02/20/24 History meloxicam 15 mg tablet 15 mg PO DAILY 10/24/23 03/01/24 02/27/24 History rosuvastatin 5 mg tablet 5 mg PO DAILY 10/24/23 03/01/24 02/20/24 History allopurinol 300 mg tablet 300 mg PO DAILY 01/04/24 03/01/24 02/20/24 History bupropion HCl 300 mg 24 hr tablet, 300 mg PO DAILY 01/04/24 03/01/24 02/20/24 History extended release lorazepam 0.5 mg tablet 0.5 mg PO DAILY PRN Anxiety 01/04/24 03/01/24 Unknown History oxcarbazepine 600 mg 600 mg PO BID 01/04/24 03/01/24 02/20/24 History tablet,extended release 24 hr quetiapine 200 mg tablet 200 mg PO BEDTIME 01/04/24 03/01/24 02/20/24 History quetiapine 25 mg tablet 25 mg PO .prn 01/04/24 03/01/24 02/20/24 History omega 4-zkn-egr-fish oil 1,000 mg 1 cap PO DAILY 03/01/24 03/01/24 03/01/24 History (120 mg-180 mg) capsule (Fish Oil) Exam Height,Weight and Vital Signs: Height 5 ft 8.5 in Weight 156.659 kg Pertinent Lab Results Pertinent Lab Results: Laboratory Tests 03/08/24 03/08/24 10:08 10:10 WBC 5.9 RBC 4.80 Hgb 14.7 Hct 42.5 MCV 88.5 MCH 30.6 MCHC 34.6 RDW 13.2 Plt Count 196 MPV 11.3 Immature Gran % (Auto) 0.2 Neut % (Auto) 63.2 Lymph % (Auto) 27.4 [place] % (Auto) 7.3 Eos % (Auto) 1.4 Baso % (Auto) 0.5 Lymph # (Auto) 1.6 [place] # (Auto) 0.4 Eos # (Auto) 0.1 Baso # (Auto) 0.0 Abs Immat Gran (auto) 0.01 Absolute Neuts (auto) 3.7 Absolute Nucleated RBC 0.000 Nucleated RBC % (auto) 0.0 PT 12.3 INR 1.0 APTT 32.6 Sodium 137 Potassium 4.0 Chloride 100 Carbon Dioxide 26 Anion Gap 15 BUN 15 Creatinine 1.01 Estim Creat Clear Calc 128.3 Estimated GFR > 60 Random Glucose 82 Estimat Average Glucose 94 Hemoglobin A1c % 4.9 Insulin Level 17 Calcium 9.6 Total Bilirubin 0.5 AST 26 ALT 36 Alkaline Phosphatase 59 C-Reactive Protein 0.94 H Total Protein 7.5 Albumin 4.7 Triglycerides 218 H Cholesterol 94 LDL Cholesterol, Calc 34 HDL Cholesterol 17 L TSH 0.70 Blood Type A Negative Antibody Screen NEGATIVE Narrative Narrative: EKG 11/2023 Vent. Rate : 081 BPM Atrial Rate : 081 BPM P-R Int : 252 ms QRS Dur : 102 ms QT Int : 374 ms P-R-T Axes : 069 -16 027 degrees QTc Int : 434 ms Sinus rhythm with 1st degree A-V block Inferior infarct , age undetermined Abnormal ECG No previous ECGs available NM cardiolite stress test 12/2023 Impression: 1. Myocardial perfusion imaging study shows likely normal myocardial perfusion 2. Gated LVEF is 58% 3. Transient ischemic dilatation not present EKG is nondiagnostic for ischemia Assessment and Plan Assessment Anesthesia Assessment: Chart Reviewed Final Anesthetic Review Family History of Problems with Anesthesia: No History of Problems with Anesthesia: No
[2024-03-12] VITALS (11 sets, daily range): BP systolic 125–141; BP diastolic 64–79; PULSE 69–93; RESP 16–18; TEMP 36.4–37.2; O2SAT 92–97; BMI 50.5
--- OUTSIDE RECORDS SUMMARY | 2024-03-12 05:59 | XMS_ITS | Continuity of Care Document ---
Author Organization [facility] Address [address] [place] [address]- Care Team Providers Care Head Bookkeeper Name Role Phone Torito Grace DO Primary Care Physician Encounter [facility] Date(s): 10/27/21 - 11/26/21 [facility] [address] [place] [id number]-
--- OUTSIDE RECORDS SUMMARY | 2024-03-12 05:59 | XMS_ITS | Continuity of Care Document ---
Author Organization [facility] Address [address] [place] [address]- Care Team Providers Care Power Barker Name Role Phone John JACOBO, Jerri Encarnacion Primary Care Physician Encounter [facility] Date(s): 04/27/23 - 05/27/23 [facility] [address] [address] Attending Physician: Renea Sauceda Admitting Physician: AdmRenea lutz Referring Physician: AdmtrRenea Allergies, Adverse Reactions, Alerts Substance Reaction Severity Status sulfADIAZINE Active penicillins Active Medications allopurinol 300 mg oral tablet 1 tablet = 300 mg, By Mouth, Daily at bedtime, # 30 tablet, 0 Refills, Maintenance, 01/07/15 14:17:30, Tablet Start Date: 01/07/15 Status: Ordered citalopram 10 mg oral tablet 1 tablet = 10 mg, By Mouth, Daily at bedtime, # 30 tablet, 0 Refills, Maintenance, 01/07/15 14:24:39, Tablet Start Date: 01/07/15 Status: Ordered Hydrochlorothiazide = 12.5 mg, By Mouth, Daily, 0 Refills, Maintenance, 01/07/15 14:23:37 Start Date: 01/07/15 Status: Ordered Latuda 60 mg oral tablet 1 tablet = 60 mg, By Mouth, Daily, 0 Refills, Maintenance, 01/07/15 14:27:06 Start Date: 01/07/15 Status: Ordered Lisinopril = 10 mg, By Mouth, Daily at bedtime, 0 Refills, Maintenance, 07/24/13 10:00:39 Start Date: 07/24/13 Status: Ordered oxcarbazepine 600 mg oral tablet 1 tablet = 600 mg, By Mouth, 2 times a day, # 180 tablet, 0 Refills, Maintenance, 01/07/15 14:24:08, Tablet Start Date: 01/07/15 Status: Ordered Wellbutrin XL 300 mg/24 hours oral tablet, extended release 1 tablet = 300 mg, By Mouth, Daily, 0 Refills, Maintenance, 01/07/15 14:26:29 Start Date: 01/07/15 Status: Ordered Problem List Condition Confirmation Course Effective Dates Status Health St [facility] Informant Asthma Confirmed Active Gout Confirmed Active Hypertension Confirmed Active Social History Social History Type Response Smoking Status Never smoker entered on: 01/07/15 Sex Patient Care team information Care Team Personnel Name: John JACOBO, Jerri Encarnacion Position: [facility] Outreach Member Role: PCP Address: Address: [address] [place] [id number]- Care Team Related Persons Name: ALYSA BARRIGA Address: home [address] [place] [address] Name: RIGOBERTO BARRIGA Address: home [address] [place] [id number]
--- OUTSIDE RECORDS SUMMARY | 2024-03-12 05:59 | XMS_ITS | Continuity of Care Document ---
Author Organization [facility] Address [address] [place] [address]- Care Team Providers Care Irrigator Sprinkling System Name Role Phone John JACOBO, Jerri Encarnacion Primary Care Physician Encounter [facility] Date(s): 04/27/23 - 05/27/23 [facility] [address] [address] Attending Physician: Renea Sauceda Admitting Physician: [...] Personnel Name: John JACOBO, Jerri Encarnacion Position: [facility] Outreach Member Role: PCP Address: Address: [address] [place] [id number]- Care Team Related Persons Name: ALYSA BARRIGA Address: home [address] [place] [address] Name: RIGOBERTO BARRIGA Address: home [address] [place] [address]
--- OUTSIDE RECORDS SUMMARY | 2024-03-12 05:59 | XMS_ITS | Continuity of Care Document ---
Author Organization [facility] Address [address] [place] [address]- Care Team Providers Care Collections Officer Name Role Phone Not on Staff, PCP Primary Care Physician Unavail able Encounter [facility] Date(s): 03/14/22 - 04/13/22 [facility] [address] [place] [address]-
--- OUTSIDE RECORDS SUMMARY | 2024-03-12 05:59 | XMS_ITS | Continuity of Care Document ---
Author Organization [facility] Address [address] [place] [phone]- Care Team Providers Care Paint Preparer Name Role Phone Not on Staff, PCP Primary Care Physician Unavail able Encounter [facility] Date(s): 03/21/22 - 04/20/22 [facility] [address] [address]- Attending Physician: Renea Sauceda Admitting Physician: Renea Sauceda Referring Physician: Renea Sauceda
--- OUTSIDE RECORDS SUMMARY | 2024-03-12 05:59 | XMS_ITS | Continuity of Care Document ---
Author Organization [facility] Address [address] [place] [address]- Care Team Providers Care Preprint Analyst Name Role Phone Not on Staff, PCP Primary Care Physician Unavail able Encounter [facility] Date(s): 03/21/22 - 04/20/22 [facility] [address] [address]- Attending Physician: Renea Sauceda Admitting Physician: Renea Sauceda Referring Physician: Renea Sauceda
--- OUTSIDE RECORDS SUMMARY | 2024-03-12 05:59 | XMS_ITS | Continuity of Care Document ---
Author Organization [facility] Address [address] [place] [id number]- Care Team Providers Care Weeder Name Role Phone Not on Staff, PCP Primary Care Physician Unavail able Encounter [facility] Date(s): 06/23/22 - 07/23/22 [facility] [address] [address]- Attending Physician: Renea Sauceda Admitting Physician: Renea Sauceda Referring Physician: Renea Sauceda Care Team Personnel Name: Not on Staff, PCP
[2024-03-12] MEDS: Aprepitant 32 MG/4.4 ML VIAL IVPUSH (06:36)
[2024-03-12] MEDS: Lactated Ringers 1,000 ML 999 ML IV (06:38)
--- NOTE | 2024-03-12 07:21 | P.CONAN_ITS ---
FORM[facility]LY [facility] Active Problems Active Problems: All Active Problems (Updated 03/01/24 @ 13:52 by Amy Momin, RN) Depression, unspecified (Acute) Abnormal EKG (Acute) Left foot drop (Acute) Morbid obesity (Acute) Hypercholesterolemia (Acute) HTN (hypertension) (Acute) Lesion of left [place] kidney (Acute) DJD (degenerative joint disease) (Acute) Bipolar 1 disorder (Acute) Anxiety (Acute) Gout (Acute) Sleep apnea treated with continuous positive airway pressure (CPAP) (Acute) Past Medical History Medical History Hx of renal calculi Depression Foot drop, left Lesion of left [place] kidney DJD (degenerative joint disease) Bipolar 1 disorder Anxiety Gout Sleep apnea treated with continuous positive airway pressure (CPAP) Family History Family History Mother No problems noted. Father No problems noted. Daughter No problems noted. Family history of problems with anesthesia: No Surgical History Surgical History History of esophagogastroduodenoscopy (EGD) (02/21/24) History of parathyroidectomy History of back surgery History of Problems with Anesthesia: No Social History Social History (Updated 03/01/24 @ 13:53 by Amy Momin, OLIVER) Household Members: Family Housing: [facility] Are you a primary home care administrator to a significant other at home: No Do you presently have visiting nurse or other home services: No Alcohol intake: current Alcohol intake frequency: holidays/special occasions only Patient Tobacco Use Status: Former Tobacco user Quit Date: 1994 Tobacco use type: Cigarette Years Smoked: 1 Use of substances other than those prescribed or required for medical reasons: No Have you been hit, kicked, punched, or otherwise hurt by someone within the past year? If so, by whom?: No Are you DNR?: No Advance Directives: No Advance Directives on File: No Recently lost weight without trying: No Nutrition Risks: No Nutritional Risk Poor oral hygiene: No Meds Allergies Allergy/AdvReac Type Severity Reaction Status Date / Time Sulfa (Sulfonamide Allergy Intermediate Rash Verified 03/12/24 06:19 Antibiotics) pcn AdvReac Intermediate rash Uncoded 03/08/24 10:44 Active Medications: Current Medications Lactated Ringer's (Lr) 1,000 mls @ 100 mls/hr IVCONT .Q10H SHAGGY Lactated Ringer's (Lr) 1,000 mls @ 999 mls/hr IV .Q1H1M SHAGGY Stop: 03/12/24 08:00 Last Admin: 03/12/24 06:38 Dose: 999 mls/hr Home Medications ?Medication ?Instructions ?Recorded ?Confirmed ?Last Taken ?Type citalopram 10 mg tablet 10 mg PO DAILY 10/24/23 03/01/24 03/11/24 History lisinopril 10 1 tab PO DAILY 10/24/23 03/01/24 03/12/24 04:30 History mg-hydrochlorothiazide 12.5 mg tablet lurasidone 60 mg tablet (Latuda) 60 mg PO DAILY 10/24/23 03/01/24 03/11/24 History meloxicam 15 mg tablet 15 mg PO DAILY 10/24/23 03/01/24 02/27/24 History rosuvastatin 5 mg tablet 5 mg PO DAILY 10/24/23 03/01/24 03/11/24 History allopurinol 300 mg tablet 300 mg PO DAILY 01/04/24 03/01/24 03/11/24 History bupropion HCl 300 mg 24 hr tablet, 300 mg PO DAILY 01/04/24 03/01/24 03/11/24 History extended release lorazepam 0.5 mg tablet 0.5 mg PO DAILY PRN Anxiety 01/04/24 03/01/24 03/11/24 History oxcarbazepine 600 mg 600 mg PO BID 01/04/24 03/01/24 03/11/24 History tablet,extended release 24 hr quetiapine 200 mg tablet 200 mg PO BEDTIME 01/04/24 03/01/24 03/11/24 History quetiapine 25 mg tablet 25 mg PO .prn 01/04/24 03/01/24 02/20/24 History omega 3-zvf-zcw-fish oil 1,000 mg 1 cap PO DAILY 03/01/24 03/01/24 02/27/24 History (120 mg-180 mg) capsule (Fish Oil) Exam Height,Weight and Vital Signs: Height 5 ft 8.5 in Weight 152.77 kg Last Vital Signs Temp 98.4 F 03/12/24 06:39 Pulse 73 03/12/24 06:39 Resp 16 03/12/24 06:39 BP 132/79 03/12/24 06:39 Pulse Ox 96 03/12/24 06:39 O2 Del Method Room Air 03/12/24 06:39 Pertinent Lab Results Pertinent Lab Results: Laboratory Tests 03/08/24 03/08/24 10:08 10:10 WBC 5.9 RBC 4.80 Hgb 14.7 Hct 42.5 MCV 88.5 MCH 30.6 MCHC 34.6 RDW 13.2 Plt Count 196 MPV 11.3 Immature Gran % (Auto) 0.2 Neut % (Auto) 63.2 Lymph % (Auto) 27.4 [place] % (Auto) 7.3 Eos % (Auto) 1.4 Baso % (Auto) 0.5 Lymph # (Auto) 1.6 [place] # (Auto) 0.4 Eos # (Auto) 0.1 Baso # (Auto) 0.0 Abs Immat Gran (auto) 0.01 Absolute Neuts (auto) 3.7 Absolute Nucleated RBC 0.000 Nucleated RBC % (auto) 0.0 PT 12.3 INR 1.0 APTT 32.6 Sodium 137 Potassium 4.0 Chloride 100 Carbon Dioxide 26 Anion Gap 15 BUN 15 Creatinine 1.01 Estim Creat Clear Calc 128.3 Estimated GFR > 60 Random Glucose 82 Estimat Average Glucose 94 Hemoglobin A1c % 4.9 Insulin Level 17 Calcium 9.6 Total Bilirubin 0.5 AST 26 ALT 36 Alkaline Phosphatase 59 C-Reactive Protein 0.94 H Total Protein 7.5 Albumin 4.7 Triglycerides 218 H Cholesterol 94 LDL Cholesterol, Calc 34 HDL Cholesterol 17 L TSH 0.70 Blood Type A Negative Antibody Screen NEGATIVE Airway Mallampati Class: III TM Dist: >3cm Neck ROM: Full Assessment and Plan Assessment Anesthesia Assessment: Anesthesia Plan Discussed and Chart Reviewed Final Anesthetic Review Family History of Problems with Anesthesia: No History of Problems with Anesthesia: No NPO: Yes ASA Class: III Final Preanesthetic Review: No Changes in Pt Med Stat, Meds/Allgs Chart Reviewed, Consent Obtained/Reviewed and Anes Risks/Benef Reviewed Patient Risk: Intermediate Procedure Risk: Intermediate Anesthetic Plan Anesthetic Plan: GA Disposition: Standard PACU
--- NOTE | 2024-03-12 07:49 | MHC.SHP ---
Pre-Procedural Eval Section A - 24 Hr Update-Section A only Date of Service: 03/12/24 The patient is an INPATIENT: Yes The patient has been examined within 24 hours of the surgical procedure. The History & Physical has been completed within 30 days and I have reviewed it.: Yes Section B - Complete if H&P > 30 days Chief Complaint: Morbid obesity Relevant Family History (Specify if Yes): No Relevant Social History: None Present Medications: None Medical History: No relevant PMH History of Previous Operations: No relevant previous surgery Allergies: Allergies Allergy/AdvReac Type Severity Reaction Status Date / Time Sulfa (Sulfonamide Allergy Intermediate Rash Verified 03/12/24 06:19 Antibiotics) pcn AdvReac Intermediate rash Uncoded 03/08/24 10:44 Review of Systems Sugical H&P ROS: Negative: Constitution, Cardiovascular, Respiratory, Neurological, Psychiatric, Hem-Onc, Allergic/Immunologic, Gastrointestinal, Genitourinary, Musculoskeletal, Integumentary, Endocrine and Eyes/Ears/Nose/Throat Exam Surgical H&P Exam: Normal: HEENT, Normal: Heart, Normal: Lungs, Normal: Extremities, Normal: Abdomen, Normal: Skin and Normal: Neurological Plan Diagnosis/Plan: Unchanged I have reviewed the history and physical and performed a pertinent physical examination on my patient. No changes have occurred unless specified. Time Spent With Patient Time: Total time managing care of this patient today ____ minutes.
--- NOTE | 2024-03-12 07:56 | PM.OP ---
Brief Operative Note Date of Service: 03/12/24 Pre-op diagnosis: Morbid obesity with comorbidities (see below) Post-op diagnosis: same Procedure: INITIAL PATIENT BMI ON PRESENTATION AT OUR OFFICE: 56.9 kg/m2 LAST BMI BEFORE SURGERY: 49.9 kg/m2 COMORBIDITIES: Sleep apnea on CPAP, hypertension, hyperlipidemia, depression, anxiety, bipolar, gout, DJD, GERD, liver fibrosis, esophagitis ?The patient presented to the Weight Management Program with significant obesity that was negatively impacting the patient's comorbidities as listed above.? The program is a phased program with a special focus on preoperative medical weight management to promote substantial weight loss and prepare the patients for the second phase of the program: bariatric surgery. The patient participated in an intensive weekly lifestyle ?intervention and exercise program during which the patient ?has lost between the initial office visit and the last preoperative visit 51.1lbs, or 13.17% of initial actual body weight. It was deemed appropriate for the patient to now have bariatric surgery. In light of the current Covid-19 pandemic and the well documented strong association of obesity and increased risk of worse outcomes if infected with Covid-19 (REFERENCES:https://pubmed.ncbi.nlm.nih.gov/03985445/,?https://pubmed.ncbi.nlm.nih.gov/03270479/), any delay in undergoing bariatric surgery may lead to the patient's worsening health condition and increased?risk of more severe Covid-19 disease if infected. In addition a recent?study from [facility] published in [employer] on 10/25/2021 ([email or web address]) found that, among patients with obesity, substantial weight loss achieved with surgery was associated with improved outcomes of COVID-19 infection. The findings suggest that obesity can be a modifiable risk factor for the severity of COVID-19 infection. In addition, the patient met the BMI-criteria for bariatric surgery based on the BMI on initial presentation. The patient should not be penalized for achieving such weight loss because ?it is not sustainable long-term without surgical intervention and it was achieved in preparation for bariatric surgery ?under my direction and based on my published research ([email or web address]).[email or web address] and?https://www.soard.org/article/[email or web address](96)95345-X/pdf) ?that a 10% preoperative weight loss improves long-term weight loss after surgery and reduces perioperative complications.? Insurance carriers such as [facility] have endorsed my recommendations ?and have included in their policies criteria to include a 10% preoperative weight loss requirement. PROCEDURE: Esophago-gastroscopy, laparoscopic lysis of adhesions, laparoscopic sleeve gastrectomy and laparoscopic gastropexy INDICATIONS: This is a 49 year-old male who was electively scheduled for laparoscopic, possibly open sleeve gastrectomy. The risks and complications of the procedure were discussed with the patient in advance, particularly the possibility of ; pulmonary embolism; staple line leak; bleeding; GERD; cardiac, pulmonary, or renal complications; as well as long-term problems such as insufficient weight loss, vitamin deficiency, strictures, or ulcers. The patient understood all the risks, and was in agreement to proceed with surgery. DESCRIPTION OF PROCEDURE: After informed consent was obtained from the patient, the patient was given preoperative antibiotics, and was transferred to the operating room. After successful induction of general anesthesia, pneumatic compression devices were placed on both lower extremities. An upper endoscopy was performed next. The oropharynx and esophagus appeared to be within normal limits. There was no diaphragmatic hernia present consistent with the findings of the preoperative upper GI. The stomach was entered. Then after all fluid and air were suctioned and the stomach was fully decompressed, the scope was withdrawn and secured in the mid esophagus. The patient was then prepped and draped in the usual sterile manner, and abdominal access was established at the right upper quadrant with the Katrin technique. A 12 mm blunt port was inserted, and the abdomen was insufflated with CO2 to a pressure of 15 mmHg. Under direct visualization, additional ports were placed, specifically two 5 mm Versi-step ports to the left upper quadrant, and a 5 mm Versi-Step port to the right upper quadrant. 1% lidocaine plain was used to infiltrate all port sites as well as all fascia defects.. Following that, the patient was placed in a steep reverse Trendelenburg position. An additional 5 mm port was placed to the right flank for the Mediflex retractor that was used to retract the left lobe of the liver. The gastro-esophageal fat pad was opened with the ultrasonic device (Thunderbeat, Olympus) and the anterior esophagus and hiatus were exposed. The angle of His was opened with the ultrasonic device the fundus of the stomach from any diaphragmatic and splenic attachments. I then opened the gastrocolic ligament between the transverse colon and the greater curvature of the stomach with the ultrasonic device to enter the lesser sac and facilitate the ligation of the short gastric vessels. I started at a mid-point along the greater curvature and using the Thunderbeat, all short gastric vessels were divided all the way to the angle of His until the left diann was completely dissected at its entirety. I then divided the gastro-colic ligament distally to a distance of about 3-4 cm proximal to the pylorus. There were extensive congenital adhesions between the pancreas and posterior gastric wall. Those were lysed completely with the ultrasonic device. Adhesiolysis took approximately 45 min to complete. The stomach was then divided transversely with two Endo FLACA-45 purple and four FLACA-60 articulating purple loads using the SIGNIA stapler and loads. Every effort was made that the gastric sleeve had a tubular shape and an even caliber throughout. Once the sleeve resection was completed, the staple line of the gastric sleeve was reinforced with Hemoclips. The resected stomach was retrieved without difficulty from the Katrin port. A gastropexy was then performed in order to prevent postoperative GERD and partial gastric volvulus. Several interrupted 2.0 Surgidac sutures were placed between the sleeve's staple line and the previously divided greater omentum and gastro-colic ligament using the Endo-Stitch device. ?An upper endoscopy was performed. There was no narrowing at the GE junction. The scope was easily advanced all the way to the pylorus which was clearly visualized. There was no narrowing anywhere and the sleeve's caliber was even throughout. The sleeve's staple line was inspected and there was no evidence of ischemia, bleeding or dehiscence. At that point the gastroscope was withdrawn from the patient?s mouth while we were decompressing the bowel and the stomach from any remaining air. I looked into the lesser sac to see how the sleeve was situating and it was situating well. There was no bleeding from the staple line, spleen, or short gastric vessels. The Mediflex retractor was removed, and the undersurface of the liver was inspected and there was no bleeding. The patient was placed in supine position. I closed the fascial defect of the 12 mm port site with a figure of eight #1 Polysorb suture. Then 30cc Ropivacaine plain with 10 mg of Dexamethasone were used to infiltrate the fascial closure as well as all skin incisions. A total of 7ml Zynrelef was applied in the Katrin wound. At this point, the abdomen was deflated, all ports were removed under direct vision, and no bleeding was noted from any of the port sites. The skin incisions were irrigated with saline and were closed with 4-0 absorbable monofilament sutures. Steri-Strips and OpSites were used to cover all incisions. The patient was extubated and was transferred in stable condition to the recovery room for further care. I was present and performed all enriquez parts of the procedure. Ms. Sheehanconrad was the graduate teaching assistant. There were no residents to assist with this case. Tang Vargas MD, PhD, FACS Surgeon: Jaspreet Vargas MD Anesthesia: GETA, local and other (TAP block and 7ml Zynrelef) Was an Acoustical Logging Engineer used for this Procedure?: No Acoustical Logging Engineer: Shanell Jaramillo Estimated blood loss (mL): 10 IV fluids (mL): 2,500 Urine output (mL): 0 (No Baldwin to record output) Pathology: other (Stomach) Condition: stable Disposition: PACU
--- NOTE | 2024-03-12 08:00 | PM.PNGS ---
Subjective Subjective Date of Service: 03/13/24 Interval history: Feels well. Mild incisional pain. He is tolerating phase 1 bariatric diet Physical Exam Vital Signs: Vital Signs: Last Vital Signs Temp 98.4 F 03/12/24 06:39 Pulse 73 03/12/24 06:39 Resp 16 03/12/24 06:39 BP 132/79 03/12/24 06:39 Pulse Ox 96 03/12/24 06:39 O2 Del Method Room Air 03/12/24 06:39 BMI result Body Mass Index 50.5 GI: Inspection: Yes normal to inspection, Yes incision (clean, dry and intact) and Yes obesity Palpation (GI): Soft to palpation Extrem: Right lower extremity: normal to inspection (no calf tenderness) Left lower extremity: normal to inspection (no calf tenderness) Objective Data Active Medications Hydromorphone HCl (Hydromorphone Hcl 0.5 Mg/0.5 Ml Syringe) 0.5 mg IVPUSH Q5M PRN; Protocol PRN Reason: Pain, Severe (Pain Scale 7-10) Stop: 03/12/24 13:22 Lactated Ringer's (Lr) 1,000 mls @ 100 mls/hr IVCONT .Q10H PENDING SALE TO [facility] Lactated Ringer's (Lr) 1,000 mls @ 999 mls/hr IV .Q1H1M PENDING SALE TO [facility] Stop: 03/12/24 08:00 Last Admin: 03/12/24 06:38 Dose: 999 mls/hr Documented By: VITO Ondansetron HCl (Ondansetron Hcl 4 Mg/2 Ml Vial) 4 mg IVPUSH ONCE PRN PRN Reason: Nausea and Vomiting Stop: 03/12/24 13:22 Labs 03/13/24 05:50 03/13/24 05:50 Procedures Date of Service Date of Service: 03/13/24 Progress Note: A&P Assessment and plan (1) Morbid obesity: Status: Acute Assessment and Plan: s/p laparoscopic sleeve gastrectomy, lysis of adhesions and gastropexy Doing well Will check am labs and if OK the patient will be discharged home (2) Sleep apnea treated with continuous positive airway pressure (CPAP): Status: Acute (3) Gout: Status: Acute (4) Anxiety: Status: Acute (5) Bipolar 1 disorder: Status: Acute (6) DJD (degenerative joint disease): Status: Acute (7) HTN (hypertension): Status: Acute (8) Hypercholesterolemia: Status: Acute (9) Depression, unspecified: Status: Acute (10) Liver fibrosis: Status: Acute (11) GERD (gastroesophageal reflux disease): Status: Acute (12) Esophagitis: Status: Acute (13) S/P laparoscopic sleeve gastrectomy: Status: Acute (14) Congenital intra-abdominal adhesions: Status: Acute Time Spent With Patient Time: Total time managing care of this patient today ____ minutes. Quality Stroke Does the patient have a stroke diagnosis?: No VTE Prior VTE?: No VTE Risk Level:: Surgical - moderate VTE Device Contraindication: N/A - Device Ordered VTE Drug Contraindication: Treatment Not Indicated
--- NOTE | 2024-03-12 11:24 | P.DS_ITS ---
DS: Providers Provider Date of Service: 03/13/24 Date of admission: 03/12/24 05:55 Primary care physician: YOUSIF KEITH DO DS: Diagnosis Discharge Diagnosis (1) Morbid obesity: Status: Acute (2) Sleep apnea treated with continuous positive airway pressure (CPAP): Status: Acute (3) Gout: Status: Acute (4) Anxiety: Status: Acute (5) Bipolar 1 disorder: Status: Acute (6) DJD (degenerative joint disease): Status: Acute (7) HTN (hypertension): Status: Acute (8) Hypercholesterolemia: Status: Acute (9) Depression, unspecified: Status: Acute (10) Liver fibrosis: Status: Acute (11) GERD (gastroesophageal reflux disease): Status: Acute (12) Esophagitis: Status: Acute (13) S/P laparoscopic sleeve gastrectomy: Status: Acute (14) Congenital intra-abdominal adhesions: Status: Resolved DS: Summary Hospital Course Hospital Course: ADMITTING DIAGNOSIS: morbid obesity,?bipolar disorder, LAY, HTN, HLD, GERD, anxiety, gout, L kidney lesion ? DISCHARGE DIAGNOSIS: same, s/p laparoscopic sleeve gastrectomy and gastropexy ? PAST SURGICAL HISTORY:?back surgery ? PROCEDURE: upper endoscopy, laparoscopic sleeve gastrectomy and gastropexy ? DISCHARGE SUMMARY: ? History of Present Illness: ? The patient is a? 49? year-old male with a BMI of? 50.5? kg/m2 and associated co-morbidities as described above. The patient had extensive work-up,lost? ?50.8 ? lbs preoperatively and was electively scheduled for laparoscopic, possible open sleeve gastrectomy and gastropexy. Risks and complications of the surgery were discussed with the patient in advance, particularly the possibility of , pulmonary embolism, anastomotic leak, bleeding, bowel injury, GERD, cardiac, renal or pulmonary complications. The patient understood all the risks and was in agreement with the surgical plan. ? Hospital Course: ? The patient underwent an uneventful laparoscopic sleeve gastrectomy with gastropexy on the day of admission. Postoperatively, the patient was transferred to the surgical floor. The patient received IV Acetaminophen and IV dilaudid for pain control. Patient was started on bariatric phase 1 diet POD #0. On postoperative day one, the patient was feeling well without nausea, vomiting, fevers, or tachycardia. The patient had some mild incisional pain and the abdomen was soft.? ? On the morning of postoperative day one, the patient was continued on 1 ounce of water or ice every half hour. During the day, the patient did fairly well, having some incisional pain, but able to ambulate adequately and to tolerate liquids well. ? Since the patient is doing well, we decided that the patient was ready to be discharged. The patient was given instructions to follow-up with me next week and to call my office for any fever over 101, persistent abdominal pain, nausea, vomiting, GERD, symptoms of DVT such as calf tenderness, or leg swelling, or pulmonary embolism such as chest pain or shortness of breath.? The patient was also instructed to drink 40-60 ounces of liquids per day using the 1-ounce cups. The patient had been given prescriptions for Tylenol for pain, Zofran prn for nausea, and pantoprazole and carafate previously. The patient was encouraged to ambulate and use the incentive spirometer. The patient was allowed to shower, but no baths, and encouraged to stay active at home. All of these instructions were given to the patient personally. All questions were answered and the patient understood all instructions, the instructions were also given to the patient in print. Time Attestation Discharge Coordination Time (in mins): 30 Quality: Safe Use of Opioids Does Pt have an Active Cancer Diagnosis on the Problem List?: No Quality: Stroke Does the patient have a stroke diagnosis?: No Physical Exam Vital Signs: Vital Signs: Last Vital Signs Temp 98.4 F 03/12/24 06:39 Pulse 73 03/12/24 06:39 Resp 16 03/12/24 06:39 BP 132/79 03/12/24 06:39 Pulse Ox 96 03/12/24 06:39 O2 Del Method Room Air 03/12/24 06:39 BMI result Body Mass Index 50.5 DS: Data Data Completed and Pending Pending studies at discharge: Pending at discharge 03/12/24 10:18 Surgical [PTH] Routine 03/12/24 10:42 Surgical [PTH] Routine Discharge Plan Discharge Anticipated Discharge Date/Time: 03/13/24 10:00 Patient Disposition: Home, Self-Care Discharge Diagnosis: s/p laparoscopic sleeve gastrectomy with gastropexy Referrals: YOUSIF KEITH [Primary Care Provider] - 1 Week Discharge Medications: Continued omega 0-pbx-kxw-fish oil [Fish Oil] 1,000 mg (120 mg-180 mg) Capsule 1 cap PO DAILY pantoprazole 40 mg tablet,delayed release (DR/EC) 40 mg PO DAILY@0630 oxcarbazepine 600 mg tablet 600 mg PO BID sucralfate 100 mg/mL suspension 10 ml PO BID Qty: 600 2RF ondansetron 4 mg tablet,disintegrating 4 mg PO Q6H PRN (Reason: nausea and vomiting) Qty: 20 0RF Rx Instructions: Only take one every 12 hours as needed if you have nausea citalopram 10 mg tablet 10 mg PO DAILY rosuvastatin 5 mg tablet 5 mg PO DAILY lurasidone [Latuda] 60 mg tablet 60 mg PO BEDTIME Rx Instructions: must administer with food (at least 350 calories) quetiapine 200 mg tablet 200 mg PO BEDTIME lorazepam 0.5 mg tablet 0.5 mg PO DAILY PRN (Reason: Anxiety) allopurinol 300 mg tablet 300 mg PO DAILY bupropion HCl 300 mg tablet extended release 24 hr 300 mg PO DAILY Held lisinopril-hydrochlorothiazide 10-12.5 mg tablet 0.5 tab PO DAILY Hold Instructions: Resume on 03/14/24. Check your blood pressure every morning as soon as you wake up and send it to Dr. Vargas. Do no take the blood pressure medication if the blood pressure is below 120/70. Wait every day to hear back from Dr. Vargas before you take the medication. Discontinued thiamine HCl (vitamin B1) 100 mg tablet 100 mg PO DAILY 90 Days Qty: 90 0RF cholecalciferol (vitamin D3) 125 mcg (5,000 unit) capsule 125 mcg PO DAILY 90 Days Qty: 90 0RF meloxicam 15 mg tablet 15 mg PO DAILY Discharge Orders: Discharge Order (Routine); Ordered 03/13/24 Ordered By: Jaspreet Vargas Activity on Discharge: No heavy lifting Stand Alone Forms: Patient Portal Discharge page Print Language: Turkmen Care Plan Goals: weight loss Health Concerns: morbid obesity Plan of Treatment: No tub baths, sex or returning to work until discussed at first post op appointment. No alcohol, tobacco or illegal drug use. Continue to use incentive spirometer hourly while awake. Walk in home for 5- 10 minutes every 2 hours during the first week. Wear abdominal binder with activity. Follow all meal plan instructions from your bariatric surgeon. Review bariatric handbook and call with any questions. Discharge Instructions 1. Please call your doctor or come back to the emergency room should any new symptoms arise. 2. Activity: abstain from alcohol,? limited stair climbing, no bending, no driving, no exercise, no illicit substances, no lifting, no sex, no tub bath, no work. 4. Diet: follow your bariatric surgeons recommendations for advancing diet. 5. Dressing Change/Wound Care: Your incisions are covered with waterproof dressings. You can shower with these and pat dry. Do not rub over dressings or incisions. If the area is tender, you may apply an ice pack for short intervals (no more than 20 minutes on, followed by at least 20 minutes off). Do not apply heat. Do not use creams, lotions, or topical antibiotics unless instructed to do so by your surgeon. 6. Call your doctor if: - Your temperature exceeds 101.5 F - You experience excessive pain or swelling - You have an unexpected reaction to medication - You have excessive bleeding - You experience continued vomiting/nausea - Your incision begins to separate - Your incision shows signs of infection such as increased redness, swelling, excessive pain, heat, or drainage (light blood or clear fluid is normal) General instructions: No lifting greater than 10 lbs for the next 6 weeks[address] within 24 hours of taking narcotic pain medications. If you do not move your bowels in the next 2 days, please take milk of magnesia over the counter. Please follow the post op diet and do not advance your diet until you are seen in the office in about 2 weeks. Please walk around your home every hour or two to prevent blood clots from forming in your legs. You do not need to wake from sleeping to walk. Please sleep in a bed or couch to prevent kinking at the hips and knees. Please take your incentive spirometer (your lung information technology account manager) home with you and use it for the next few days to prevent pneumonias. You may shower, no hot tubs, baths or swimming pools. Please call the office with any questions or concerns such as increasing abdominal pain, fever, chills, shortness of breath, chest pain, leg pain or swelling, or redness or drainage from your incisions. Please make sure you are consuming 40-60 ounces of total fluids per day. Avoid all carbonation. Do not hesitate to contact the office with any questions at . The patient's medical history has been reviewed and they are considered low risk for post op DVT and therefore DVT prophylaxis is not considered necessary. Travel after surgery was reviewed. The patient has not disclosed any travel plans during the first 30 days after surgery and they have been advised that within the first 30 days after surgery any bus, plane, train or car travel over 2 hours in duration is contraindicated due to the possibility of developing blood clots from immobility. Any travel, needs to include periods of ambulation of 10 minutes in duration every 2 hours.? The patient was instructed to discuss any plans for travel during this period with their bariatric surgeon. Assessment: s/p laparoscopic sleeve gastrectomy with gastropexy Discharge Date/Time: 03/13/24 09:22
[2024-03-12 12:16] LABS: Hematocrit 40.6 % (42.0-52.0); Hemoglobin 14.1 g/dl (14.0-18.0)
[2024-03-12 12:31] LABS: Anion Gap 14 (12-20); Blood Urea Nitrogen 17 mg/dL (9-16); Calcium 9.2 mg/dL (8.4-10.2); Carbon Dioxide 22 mmol/L (22-29); Chloride 99 mmol/L (96-108); Creatinine Clr Calc Pharmacy 143.4; Estimated Glomerular Filt Rate > 60; Glucose Random 122 mg/dL (60-115); Potassium 4.4 mmol/L (3.3-5.1); Sodium 131 mmol/L (135-145)
[2024-03-12] MEDS: Lactated Ringers 1,000 ML 100 ML IVCONT (13:24)
--- NOTE | 2024-03-12 13:41 | PHA.MEDREC ---
Pharmacy Consult ? Medication Reconciliation Pharmacy has completed the medication reconciliation. Pt reports taking half a tablet of lisinopril-HCTZ recently and monitoring BP per his PCP, instead of a full tablet. Oxcarbazepine is immediate release 600 mg BID.
[2024-03-12] MEDS: 0.9 % Sodium Chloride 1,000 ML 100 ML IVCONT (14:36)
[2024-03-12] MEDS: Acetaminophen 1,000 MG/100 ML PIGGYBACK 16.7 MG IV ×2 (16:51→21:27)
[2024-03-12] MEDS: QUEtiapine Fumarate 200 MG TABLET PO (21:27)
[2024-03-12] MEDS: OXcarbazepine 300 MG TABLET 600 MG PO (21:27)
[2024-03-12] MEDS: Famotidine/PF 20 MG/2 ML VIAL IVPUSH (21:33)
[2024-03-13] MEDS: 0.9 % Sodium Chloride 1,000 ML 100 ML IVCONT (00:31)
[2024-03-13 03:04] VITALS: BP 111/53; PULSE 81; RESP 18; TEMP 36.3; O2SAT 96
[2024-03-13] MEDS: Acetaminophen 1,000 MG/100 ML PIGGYBACK 16.7 MG IV (03:09)
[2024-03-13 06:10] LABS: MANUAL DIFF FLAG NO
[2024-03-13 06:25] LABS: Basophils Percent Auto 0.1 % (0-2); Hematocrit 40.1 % (42.0-52.0); Hemoglobin 13.9 g/dl (14.0-18.0); Imm Gran Abs Auto 0.13 X10*3/uL (0.00-0.03); Imm Gran Pct Auto 1.3 % (0.0-0.4); Lymphocytes Absolute Auto 0.9 X10*3/uL (1.2-4.9); Lymphocytes Percent Auto 8.8 % (20-40); Mean Corpuscular HGB Conc 34.7 g/dl (31.0-36.0); Mean Corpuscular Hemoglobin 30.5 pg (27.0-33.0); Mean Corpuscular Volume 88.1 fL (80.0-98.0); Mean Platelet Volume 11.2 fL (9.4-12.4); Monocytes Absolute Auto 0.7 X10*3/uL (0.1-1.2); Monocytes Percent Auto 6.8 % (2-11); Platelet Count 175 X10*3/uL (160-400); Red Blood Count 4.55 X10*6/uL (4.60-5.80); Red Cell Distribution Width 13.1 % (11.0-16.0); White Blood Count 9.7 X10*3/uL (4.8-10.8)
[2024-03-13 06:30] LABS: Anion Gap 17 (12-20); Blood Urea Nitrogen 15 mg/dL (9-16); Calcium 9.5 mg/dL (8.4-10.2); Carbon Dioxide 20 mmol/L (22-29); Chloride 103 mmol/L (96-108); Creatinine Clr Calc Pharmacy 148.4; Estimated Glomerular Filt Rate > 60; Glucose Random 104 mg/dL (60-115); Potassium 4.2 mmol/L (3.3-5.1); Sodium 136 mmol/L (135-145)
[2024-03-13 07:22] VITALS: O2SAT 98
[2024-03-13 07:30] VITALS: BP 116/61; PULSE 74; RESP 16; TEMP 36; O2SAT 96
--- NOTE | 2024-03-13 08:29 | MHC.CM.PN ---
Patient lives in a home w/ his parents. Functionally independent. Uses CPAP, supplies through [facility]. PCP Torito Grace DO No HCP. CM provided education and offered assistance. Patient declined. DP: Patient medically cleared for dc home self care. Mother to transport at 9am. RN aware.
--- NOTE | 2024-03-13 09:33 | HO.POSTANES ---
Post Anesthesia Evaluation Post Anesthesia Evaluation Date of Service: 03/13/24 Vital Signs: Vital Signs Temp Pulse Resp BP Pulse Ox O2 Del Method O2 Flow Rate 03/13/24 07:30 96.8 F 74 16 116/61 96 Room Air 03/13/24 07:22 98 03/13/24 03:04 97.3 F 81 18 111/53 L 96 Room Air 96 Anesthesia: General Endotracheal-GETA Mental Status: Awake Pain Control: Satisfactory Nausea/Vomiting: None Hydration: Adequate Anesthesia-Related Issues: No Anes. Related Issues
== END 2024-03-13 09:22 | disposition home or self-care (01) | DRG 403 ==
LOC: HO.SSSA 11:22 → HO.S3 11:30
PROVIDERS: Physician Assistant Surgical; Admitting Provider Surgery; PCP Internal Medicine; Visit Provider Surgery
PROC: 0DB64Z3 Excision of Stomach, Percutaneous Endoscopic Approach, Vertical (ICD-10-PCS; CPT 43845; principal; 2024-03-12 07:30)
DX: E66.01 Morbid (severe) obesity due to excess calories (principal); K74.00 Hepatic fibrosis, unspecified; Q43.3 Congenital malformations of intestinal fixation; E78.5 Hyperlipidemia, unspecified; F31.9 Bipolar disorder, unspecified; G47.33 Obstructive sleep apnea (adult) (pediatric); F41.9 Anxiety disorder, unspecified; I10 Essential (primary) hypertension; M19.90 Unspecified osteoarthritis, unspecified site; M10.9 Gout, unspecified; K21.9 Gastro-esophageal reflux disease without esophagitis; Z68.42 Body mass index [BMI] 45.0-49.9, adult; Z87.891 Personal history of nicotine dependence; Z79.899 Other long term (current) drug therapy
CPT/HCPCS: 36415; 80048; 80053; 80061; 83036; 83525; 84443; 85014; 85018; 85025; 85610; 85730; 86140; 86850; 86900; 86901; 88304; 88305; 88307; 88342; A4649; C9088; C9145; J0131; J1100; J1170; J1596; J1956; J2250; J2371; J2405; J2704; J2795; J3010; J7120

== ENCOUNTER → 2024-03-12 05:55 | Outpatient (BNV) | payer OTHER, SELFPAY | PROVIDERS: Admitting Provider Surgery; PCP Internal Medicine; Visit Provider Surgery | DX: E66.01 Morbid (severe) obesity due to excess calories (principal); Z68.42 Body mass index [BMI] 45.0-49.9, adult; Z90.3 Acquired absence of stomach [part of]; Z98.84 Bariatric surgery status | CPT/HCPCS: 43659; 43775; 99024 ==

== ENCOUNTER 2024-03-22 13:19 | Outpatient (AMB) | payer OTHER, SELFPAY ==
--- NOTE | 2024-03-22 13:50 | A.OFFVIS_ITS ---
VS Expanded 03/22/24 14:03 BP 134/71 Blood Pressure Location Rt brachial Blood Pressure Position Sitting Pulse 82 Pulse Source Pulse Oximeter Temp 96.4 F L Temperature Source Temporal Artery Scan Pulse Oximetry 95 Oxygen Delivery Method Room Air Height 5 ft 8.5 in Weight 318 lb 9.6 oz BMI 47.7 Body Fat % 43.8 Body Fat Mass 139.6 Fat Free Mass 179.0 Visceral Fat Rating 30.0 Body Water % 40.6 Body Water Mass 129.4 Muscle Mass/Score 170.2 Basal Metabolic Rate/Score 2,544 Intake Visit Reasons: (OV) PO LSG 03/12/24 Allergies Sulfa (Sulfonamide Antibiotics) Allergy (Intermediate, Verified 03/22/24 13:56) Rash pcn Adverse Reaction (Intermediate, Uncoded 03/08/24 10:44) rash HPI Comments Details: Patient is a pleasant 49-year-old male who returns to the office today in follow-up. He is status post sleeve gastrectomy performed on 03/12/2024. He has moved his bowels and is tolerating 2 celebrate 4 in 1 shakes with 2 scoops each and 1 celebrate rebuild with 2 scoops and approximately 30 oz of fluids. He is moved his bowels and has no complaints today FOR[facility]LY [facility], [facility] Medical History (Updated 03/16/24 @ 00:03 by Eliane Allen) Liver fibrosis Hx of renal calculi Depression Foot drop, left Lesion of left [place] kidney DJD (degenerative joint disease) Bipolar 1 disorder Anxiety Gout Sleep apnea treated with continuous positive airway pressure (CPAP) Surgical History (Updated 03/22/24 @ 13:58 by Marion Doll CMA) S/P laparoscopic sleeve gastrectomy History of esophagogastroduodenoscopy (EGD) (02/21/24) History of parathyroidectomy History of back surgery Family History Mother No problems noted. Father No problems noted. Daughter No problems noted. Social History Household Members: Family Housing: Condominium Are you a primary critical care physician to a significant other at home: No Do you presently have visiting nurse or other home services: No 75 years or older and lives alone: No Alcohol intake: current Alcohol intake frequency: holidays/special occasions only Patient Tobacco Use Status: Former Tobacco user Quit Date: 1994 Tobacco use type: Cigarette Years Smoked: 1 service: No Physical Exam Vital Signs: Last Vital Signs Temp 96.4 F L 03/22/24 14:03 Pulse 82 03/22/24 14:03 BP 134/71 03/22/24 14:03 Pulse Ox 95 03/22/24 14:03 Oxygen Delivery Method Room Air 03/22/24 14:03 BMI result Body Mass Index 47.7 GI Inspection: Yes incision (Clean, dry, intact.) Assessment & Plan Assessment & Plan (1) S/P laparoscopic sleeve gastrectomy: Code(s): Z98.84 - Bariatric surgery status Category: Surgical Plan: POD 10 s/p LSG on 03/12/[address] Vargas Weight loss prior to surgery was 51.7 pounds or 13.3 % TBWL. Original weight on 12/01/2023 was 387.6 pounds and op weight was 335.9 pounds. Be sure to text Dr Vargas exactly 1 week after surgery your weight from your home scale so he can adjust your meal plan. Continue meal plan until f/u felice Chand in 2 weeks May shower, no submersion in bath for another week Continue abdominal binder with activity and exercise for the next 2 weeks. Exercise prior to surgery was stationary bike, rowing machine, walking and may resume No abdominal exercises for 6 weeks post operatively Will be emailed link to post op video for review Reminded of the pace of drinking, 2 mL per minute, 1 oz/15 min.
[2024-03-22 14:03] VITALS: BP 134/71; PULSE 82; TEMP 35.8; O2SAT 95; BMI 47.7
== END 2024-03-22 14:33 | disposition home or self-care (01) ==
PROVIDERS: PCP Internal Medicine; Visit Provider Physician Assistant Surgical
DX: Z98.84 Bariatric surgery status (principal)
CPT/HCPCS: 99024

== ENCOUNTER → 2024-03-22 13:19 | Outpatient (BNVA) | payer OTHER, SELFPAY | PROVIDERS: PCP Internal Medicine; Visit Provider Physician Assistant Surgical | DX: Z90.3 Acquired absence of stomach [part of] (principal) | CPT/HCPCS: 99212 ==

== ENCOUNTER 2024-04-24 14:22 | Outpatient (AMB) | payer OTHER, SELFPAY ==
--- NOTE | 2024-04-24 14:25 | MHC.OFFVISWM ---
VS Expanded 04/24/24 14:32 BP 132/76 Blood Pressure Location Rt brachial Blood Pressure Position Sitting Pulse 94 Pulse Source Pulse Oximeter Temp 97.2 F Temperature Source Tympanic Pulse Oximetry 94 Oxygen Delivery Method Room Air Height 5 ft 8.5 in Weight 301 lb BMI 45.1 Body Fat % 41.5 Body Fat Mass 125.2 Fat Free Mass 176.4 Visceral Fat Rating 27.0 Body Water % 43.3 Body Water Mass 130.6 Muscle Mass/Score 167.8 Basal Metabolic Rate/Score 2,481 Intake Visit Reasons: (OV) PO LSG 03/12/24 Welder Fabricator Required: No Allergies Sulfa (Sulfonamide Antibiotics) Allergy (Intermediate, Verified 04/24/24 14:35) Rash pcn Adverse Reaction (Intermediate, Uncoded 04/24/24 14:35) rash Medication List - Last Reconciled 04/24/24 by CASSANDRA Lock allopurinol 300 mg PO DAILY bupropion HCl XL 300 mg PO DAILY citalopram 5 mg PO DAILY lorazepam 0.5 mg PO DAILY PRN lurasidone (Latuda) 60 mg PO BEDTIME omega 5-vue-rmb-fish oil 1,000 mg (120 mg-180 mg) (Fish Oil) 1 cap PO DAILY oxcarbazepine 600 mg PO BID pantoprazole 40 mg PO DAILY@0630 quetiapine 200 mg PO BEDTIME rosuvastatin 5 mg PO DAILY sucralfate 10 mL PO BID HPI Comments Details: This?a?49?yo male who is s/p LSG without hiatal hernia repair on?03/12/2024. Presents for 6 week post op visit. Weight today is 301.8 pounds, with a BMI of 45.2. There has been a 85.8 pound weight loss,(initial weight 387.6 pounds) since starting the program on 12/01/2023 reflecting a 22.1 % total body weight loss and a weight loss of 34.1 pounds since surgery (operative weight 335.9 pounds) reflecting a 10.1 % TBWL since surgery. No complaints of nausea, emesis, abdominal pain or reflux. Reports infrequent but normal bowel movements every 3-4 days and uses stool softeners regularly. Original weight on 12/01/2023 was 387.6 pounds and op weight was 335.9 pounds. liked old schedule 8-10, 11-1, 2-4, 5-8, shake x 3 and bar taking mvi Present meal plan includes: Celebrate rebuild 2 scoop 7-9 celebrate bar 10-12 shake 2 scoops 1-3 bar 4-6 shake 7-9 Drinking 24 oz shakes and 32 oz water ? Exercise routine includes: stationary bike 300 shy daily PFSH Medical History (Updated 03/16/24 @ 00:03 by Eliane Allen) Liver fibrosis Hx of renal calculi Depression Foot drop, left Lesion of left [place] kidney DJD (degenerative joint disease) Bipolar 1 disorder Anxiety Gout Sleep apnea treated with continuous positive airway pressure (CPAP) Surgical History (Updated 03/22/24 @ 13:58 by Marion Doll CMA) S/P laparoscopic sleeve gastrectomy History of esophagogastroduodenoscopy (EGD) (02/21/24) History of parathyroidectomy History of back surgery Family History Mother No problems noted. Father No problems noted. Daughter No problems noted. Social History Household Members: Family Housing: Condominium Are you a primary medicare nurse to a significant other at home: No Do you presently have visiting nurse or other home services: No 75 years or older and lives alone: No Alcohol intake: current Alcohol intake frequency: holidays/special occasions only Patient Tobacco Use Status: Former Tobacco user Tobacco use type: Cigarette Years Smoked: 1 service: No Physical Exam Vital Signs: Last Vital Signs Temp 97.2 F 04/24/24 14:32 Pulse 94 04/24/24 14:32 BP 132/76 04/24/24 14:32 Pulse Ox 94 04/24/24 14:32 Oxygen Delivery Method Room Air 04/24/24 14:32 BMI result Body Mass Index 45.1 Const General: healthy appearing and no acute distress Resp Effort & Inspection: normal respiratory effort Auscultation: clear to auscultation bilaterally Cardio Rate: regular rate Rhythm: regular rhythm GI Auscultation: normal bowel sounds Extrem General: Yes normal to inspection Assessment & Plan Assessment & Plan (1) S/P laparoscopic sleeve gastrectomy: Code(s): Z98.84 - Bariatric surgery status Category: Surgical Plan: Overall, patient is doing very well he will discuss with Dr. Valdez changing his scheduled back to his previous schedule as this was much more convenient for him. Additionally encouraged to continue his disciplined exercise routine. Return to the office 1 month additionally, he has no longer requiring his blood pressure medication, with blood pressure is 1 teens-120s over 60-70s.
[2024-04-24 14:32] VITALS: BP 132/76; PULSE 94; TEMP 36.2; O2SAT 94; BMI 45.1
== END 2024-04-24 15:00 | disposition home or self-care (01) ==
PROVIDERS: PCP Internal Medicine; Visit Provider Physician Assistant Surgical
DX: Z98.84 Bariatric surgery status (principal)
CPT/HCPCS: 99024

== ENCOUNTER → 2024-04-24 14:22 | Outpatient (BNVA) | payer OTHER, SELFPAY | PROVIDERS: PCP Internal Medicine; Visit Provider Physician Assistant Surgical | DX: E66.9 Obesity, unspecified (principal); Z68.42 Body mass index [BMI] 45.0-49.9, adult; Z90.3 Acquired absence of stomach [part of] | CPT/HCPCS: 99212 ==

== ENCOUNTER 2024-05-23 13:57 | Outpatient (AMB) | payer OTHER, SELFPAY ==
--- NOTE | 2024-05-23 13:33 | MHC.OFFVISWM ---
VS Expanded 05/23/24 13:34 Height 5 ft 8.5 in Weight 293 lb 2 oz BMI 43.9 Intake Visit Reasons: (tV) PO LSG 03/12/24 -see note Environmental Protection Specialist Required: No Allergies Sulfa (Sulfonamide Antibiotics) Allergy (Intermediate, Verified 04/24/24 14:35) Rash pcn Adverse Reaction (Intermediate, Uncoded 04/24/24 14:35) rash Medication List - Last Reconciled 05/23/24 by CASSANDRA Lock allopurinol 300 mg PO DAILY bupropion HCl XL 300 mg PO DAILY citalopram 5 mg PO DAILY lorazepam 0.5 mg PO DAILY PRN lurasidone (Latuda) 60 mg PO BEDTIME omega 6-huz-mqt-fish oil 1,000 mg (120 mg-180 mg) (Fish Oil) 1 cap PO DAILY oxcarbazepine 600 mg PO BID pantoprazole 40 mg PO DAILY@0630 quetiapine 200 mg PO BEDTIME rosuvastatin 5 mg PO DAILY sucralfate 10 mL PO BID HPI Comments Details: This?a?49?yo male who is s/p LSG without hiatal hernia repair on?03/12/2024. Presents for 2 month post op visit. Weight today is 293.2pounds, with a BMI of 43.9. There has been a 94.4 pound weight loss,(initial weight 387.6 pounds) since starting the program on 12/01/2023 reflecting a 24.3 % total body weight loss and a weight loss of 42.7 pounds since surgery (operative weight 335.9 pounds) reflecting a 12.7 % TBWL since surgery. No complaints of nausea, emesis, abdominal pain or reflux. Reports infrequent but normal bowel movements every 3-4 days and uses stool softeners regularly. taking mvi Present meal plan includes: Celebrate rebuild 2 scoop 7-9 celebrate bar 10-12 shake 2 scoops 1-3 1/2 bar 4-5 5 meal 5 forks protein and 5 forks veg 1/2 bar 7-8 Drinking 32 oz water ? Exercise routine includes: stationary bike 300 shy daily PFSH Medical History Liver fibrosis Hx of renal calculi Depression Foot drop, left Lesion of left [place] kidney DJD (degenerative joint disease) Bipolar 1 disorder Anxiety Gout Sleep apnea treated with continuous positive airway pressure (CPAP) Surgical History S/P laparoscopic sleeve gastrectomy History of esophagogastroduodenoscopy (EGD) (02/21/24) History of parathyroidectomy History of back surgery Family History Mother No problems noted. Father No problems noted. Daughter No problems noted. Social History Household Members: Family Housing: Condominium Are you a primary plant care worker to a significant other at home: No Do you presently have visiting nurse or other home services: No 75 years or older and lives alone: No Alcohol intake: current Alcohol intake frequency: holidays/special occasions only Patient Tobacco Use Status: Former Tobacco user Tobacco use type: Cigarette Years Smoked: 1 service: No Telehealth Telehealth Telehealth Platform: Telephone Location of provider rendering services: practice address Location of patient: address on file Patient Identification confirmed using: Name, : Yes Telehealth method: voice only Patient verbally consented to treatment: Yes Patient verbally consented to billing insurance company: Yes Patient informed of any privacy concerns related to visit: Yes Minutes spent on Phone/Video with Pt.: 12 Assessment & Plan Assessment & Plan (1) S/P laparoscopic sleeve gastrectomy: Code(s): Z98.84 - Bariatric surgery status Category: Surgical Plan: Patient overall is doing very well. We did need to adjust the meal plans slightly to split the bar on either side of his evening meal given his sleep-wake cycle. He is very satisfied with this new plan which we have outlined above. He did inquire about losing weight more quickly, discussed increasing his calories burned on his stationary bike from 300-350. He will continue to send weight is weekly by text and if any questions. Medications: Changed From pantoprazole 40 mg PO DAILY@0630 To pantoprazole 40 mg PO DAILY@0630 90 days 90 tabs 0RF
[2024-05-23 13:34] VITALS: BMI 43.9
== END 2024-05-23 13:59 | disposition home or self-care (01) ==
LOC: HO.HBS 13:57
PROVIDERS: PCP Internal Medicine; Visit Provider Physician Assistant Surgical
DX: Z98.84 Bariatric surgery status (principal)
CPT/HCPCS: 99024

== ENCOUNTER → 2024-05-23 13:57 | Outpatient (BNVA) | payer OTHER, SELFPAY | PROVIDERS: PCP Internal Medicine; Visit Provider Physician Assistant Surgical | DX: Z09 Encounter for follow-up examination after completed treatment for conditions other than malignant neoplasm (principal); E66.9 Obesity, unspecified; Z68.41 Body mass index [BMI] 40.0-44.9, adult; Z90.3 Acquired absence of stomach [part of] | CPT/HCPCS: 99212 ==

== ENCOUNTER 2024-06-27 13:45 | Outpatient (AMB) | payer OTHER, SELFPAY ==
--- NOTE | 2024-06-27 08:07 | MHC.OFFVISWM ---
VS Expanded 06/27/24 08:08 Height 5 ft 8.5 in Weight 285 lb 2 oz BMI 42.7 Body Fat % 46.5 Body Fat Mass 132.6 Fat Free Mass 152.6 Visceral Fat Rating 24 Body Water % 38.6 Body Water Mass 110 Muscle Mass/Score 145 Intake Visit Reasons: (tV) PO LSG 03/12/24 -see note [employer] Required: No Allergies Sulfa (Sulfonamide Antibiotics) Allergy (Intermediate, Verified 04/24/24 14:35) Rash pcn Adverse Reaction (Intermediate, Uncoded 04/24/24 14:35) rash Medication List - Last Reconciled 06/27/24 by CASSANDRA Lock allopurinol 300 mg PO DAILY bupropion HCl XL 300 mg PO DAILY citalopram 5 mg PO DAILY lorazepam 0.5 mg PO DAILY PRN lurasidone (Latuda) 60 mg PO BEDTIME omega 8-kvb-dmu-fish oil 1,000 mg (120 mg-180 mg) (Fish Oil) 1 cap PO DAILY oxcarbazepine 600 mg PO BID quetiapine 200 mg PO BEDTIME rosuvastatin 5 mg PO DAILY HPI Comments Details: This?a?49?yo male who is s/p LSG without hiatal hernia repair on?03/12/2024. Presents for 3 month post op visit. Weight today is 285.2 pounds, with a BMI of 42.7. There has been a 102.4 pound weight loss,(initial weight 387.6 pounds) since starting the program on 12/01/2023 reflecting a 26.4 % total body weight loss and a weight loss of 50.7 pounds since surgery (operative weight 335.9 pounds) reflecting a 15 % TBWL since surgery. No complaints of nausea, emesis, abdominal pain or reflux. Reports infrequent but normal bowel movements every 3-4 days and uses stool softeners regularly. taking mvi Present meal plan includes: Celebrate rebuild 2 scoop 7-9 celebrate bar 10-12 shake 2 scoops 1-3 1/2 bar 4-5 5 meal 5 forks protein and 5 forks veg 1/2 bar 7-8 Drinking 48 oz water ? Exercise routine includes: stationary bike/walking 300 shy daily [facility] Medical History Liver fibrosis Hx of renal calculi Depression Foot drop, left Lesion of left [place] kidney DJD (degenerative joint disease) Bipolar 1 disorder Anxiety Gout Sleep apnea treated with continuous positive airway pressure (CPAP) Surgical History S/P laparoscopic sleeve gastrectomy History of esophagogastroduodenoscopy (EGD) (02/21/24) History of parathyroidectomy History of back surgery Family History Mother No problems noted. Father No problems noted. Daughter No problems noted. Social History Household Members: Family Housing: Condominium Are you a primary respite care provider to a significant other at home: No Do you presently have visiting nurse or other home services: No 75 years or older and lives alone: No Alcohol intake: current Alcohol intake frequency: holidays/special occasions only Patient Tobacco Use Status: Former Tobacco user Tobacco use type: Cigarette Years Smoked: 1 service: No Physical Exam Vital Signs: BMI result Body Mass Index 42.7 Telehealth Telehealth Telehealth Platform: Telephone Location of provider rendering services: practice address Location of patient: address on file Patient Identification confirmed using: Name, : Yes Telehealth method: voice only Patient verbally consented to treatment: Yes Patient verbally consented to billing insurance company: Yes Patient informed of any privacy concerns related to visit: Yes Minutes spent on Phone/Video with Pt.: 15 Assessment & Plan Assessment & Plan (1) S/P laparoscopic sleeve gastrectomy: Code(s): Z98.84 - Bariatric surgery status Category: Surgical Plan: Patient is doing well overall. We will make some slight adjustments to his meal plan: Celebrate rebuild 2 scoop 7-9 celebrate bar 10-12 shake 2 scoops 1-3 5 meal 5 forks protein and 5 forks veg 1/2 bar 7-8 Encouraged to continue his exercise routine as he is doing. Encouraged to text weekly. He is satisfied with his weight loss in his meal plan. He is making good progress. Follow-up in office as scheduled
[2024-06-27 08:08] VITALS: BMI 42.7
== END 2024-06-27 13:46 | disposition home or self-care (01) ==
LOC: HO.HBS 13:45
PROVIDERS: PCP Internal Medicine; Visit Provider Physician Assistant Surgical
DX: E66.01 Morbid (severe) obesity due to excess calories (principal); Z68.41 Body mass index [BMI] 40.0-44.9, adult; Z90.3 Acquired absence of stomach [part of]; Z98.84 Bariatric surgery status
CPT/HCPCS: 99213

== ENCOUNTER → 2024-06-27 13:45 | Outpatient (BNVA) | payer OTHER, SELFPAY | PROVIDERS: PCP Internal Medicine; Visit Provider Physician Assistant Surgical | DX: Z98.84 Bariatric surgery status (principal) ==

== ENCOUNTER 2024-07-25 13:30 | Outpatient (AMB) | payer OTHER, SELFPAY ==
--- NOTE | 2024-07-25 08:58 | A.OFFVIS_ITS ---
VS Expanded 07/25/24 08:59 Height 5 ft 8.5 in Weight 288 lb 8 oz BMI 43.2 Body Fat % 47.4 Body Fat Mass 136.8 Fat Free Mass 152 Visceral Fat Rating 25 Body Water % 38 Body Water Mass 109.7 Muscle Mass/Score 144.4 Basal Metabolic Rate/Score 1,842 Intake Visit Reasons: (tV) PO LSG 03/12/24 -see note Rating Clerk Required: No Allergies Sulfa (Sulfonamide Antibiotics) Allergy (Intermediate, Verified 04/24/24 14:35) Rash pcn Adverse Reaction (Intermediate, Uncoded 04/24/24 14:35) rash Medication List - Last Reconciled 07/25/24 by CASSANDRA Lock allopurinol 300 mg PO DAILY bupropion HCl XL 300 mg PO DAILY citalopram 5 mg PO DAILY lorazepam 0.5 mg PO DAILY PRN lurasidone (Latuda) 60 mg PO BEDTIME omega 8-gna-hex-fish oil 1,000 mg (120 mg-180 mg) (Fish Oil) 1 cap PO DAILY oxcarbazepine 600 mg PO BID quetiapine 200 mg PO BEDTIME rosuvastatin 5 mg PO DAILY HPI Comments Details: This?a?49?yo male who is s/p LSG without hiatal hernia repair on?03/12/2024. Presents for 4 month post op visit. Weight today is 288.8 pounds, with a BMI of 43.2. There has been a 98.8 pound weight loss,(initial weight 387.6 pounds) since starting the program on 12/01/2023 reflecting a 25.4 % total body weight loss and a weight loss of 47.1 pounds since surgery (operative weight 335.9 pounds) reflecting a 14 % TBWL since surgery. No complaints of nausea, emesis, abdominal pain or reflux. Reports infrequent but normal bowel movements every 3- 4 days and uses stool softeners regularly. He has been stressed lately although he states that things are finally improving. He has had several times when he ate off meal plan. He was grazing and now no longer doing that. taking mvi Present meal plan includes: Celebrate rebuild 2 scoop 7-9 celebrate bar 10-12 shake 2 scoops 1-3 5 meal 6 forks protein and 6 forks veg 1/2 bar 7-8 Drinking 48 oz water ? Exercise routine includes: stationary bike/walking 300 shy daily PFSH Medical History Liver fibrosis Hx of renal calculi Depression Foot drop, left Lesion of left [place] kidney DJD (degenerative joint disease) Bipolar 1 disorder Anxiety Gout Sleep apnea treated with continuous positive airway pressure (CPAP) Surgical History S/P laparoscopic sleeve gastrectomy History of esophagogastroduodenoscopy (EGD) (02/21/24) History of parathyroidectomy History of back surgery Family History Mother No problems noted. Father No problems noted. Daughter No problems noted. Social History Household Members: Family Housing: Condominium Are you a primary transitional care nurse to a significant other at home: No Do you presently have visiting nurse or other home services: No 75 years or older and lives alone: No Alcohol intake: current Alcohol intake frequency: holidays/special occasions only Patient Tobacco Use Status: Former Tobacco user Tobacco use type: Cigarette Years Smoked: 1 service: No Telehealth Telehealth Telehealth Platform: Telephone Location of provider rendering services: practice address Location of patient: other Patient Identification confirmed using: Name, : Yes Telehealth method: voice only Patient verbally consented to treatment: Yes Patient verbally consented to billing insurance company: Yes Patient informed of any privacy concerns related to visit: Yes Minutes spent on Phone/Video with Pt.: 15 Assessment & Plan Assessment & Plan (1) S/P laparoscopic sleeve gastrectomy: Code(s): Z98.84 - Bariatric surgery status Category: Surgical Plan: He has recognized the issues that have caused some weight gain. He has been stressed and now that the stress has improved, he is going to resume the meal plan and re-start the exercise plan. Will have hm return to the office as scheduled. Encouraged to text weight weekly.
[2024-07-25 08:59] VITALS: BMI 43.2
== END 2024-07-25 13:51 | disposition home or self-care (01) ==
LOC: HO.HBS 13:41
PROVIDERS: PCP Internal Medicine; Visit Provider Physician Assistant Surgical
DX: E66.01 Morbid (severe) obesity due to excess calories (principal); Z68.41 Body mass index [BMI] 40.0-44.9, adult; Z90.3 Acquired absence of stomach [part of]; Z98.84 Bariatric surgery status
CPT/HCPCS: 99213

== ENCOUNTER → 2024-07-25 13:30 | Outpatient (BNVA) | payer OTHER, SELFPAY | PROVIDERS: PCP Internal Medicine; Visit Provider Physician Assistant Surgical ==

== ENCOUNTER 2024-09-19 08:12 | Outpatient (AMB) | payer OTHER, SELFPAY ==
--- NOTE | 2024-09-19 08:19 | A.OFFVIS_ITS ---
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: No Allergies Sulfa (Sulfonamide Antibiotics) Allergy (Intermediate, Verified 09/19/24 08:28) Rash pcn Adverse Reaction (Intermediate, Uncoded 04/24/24 14:35) rash Medication List - Last Reconciled 09/19/24 by CASSANDRA Lock allopurinol 300 mg PO DAILY bupropion HCl XL 300 mg PO DAILY citalopram 5 mg PO DAILY lorazepam 0.5 mg PO DAILY PRN lurasidone (Latuda) 60 mg PO BEDTIME omega 2-bjb-hoz-fish oil 1,000 (120-180) mg (Fish Oil) 1 cap PO DAILY oxcarbazepine 600 mg PO BID quetiapine 200 mg PO BEDTIME rosuvastatin 5 mg PO DAILY HPI Comments Details: This?a?49?yo male who is s/p LSG without hiatal hernia repair on?03/12/2024. Presents for 6 month post op visit. Weight today is 299.4 pounds, with a BMI of 44.9. There has been a 88.2 pound weight loss,(initial weight 387.6 pounds) since starting the program on 12/01/2023 reflecting a 22.7 % total body weight loss and a weight loss of 36.5 pounds since surgery (operative weight 335.9 pounds) reflecting a 10.8 % TBWL since surgery. No complaints of nausea, emesis, abdominal pain or reflux. Reports infrequent but normal bowel movements every 3-4 days and uses stool softeners regularly. He states that he has been stressed causing bad habits and weight gain. He specifically is talking with his therapist and trying to figure out a better work/life balance. taking mvi Present meal plan includes: no structured meal plan Drinking 48 oz water ? Exercise routine includes: none in the last 2 months Any post op complications: none LAY: no change DM: never HTN: resolved Hyperlipidemia: maybe improved GERD:?0-5 scale ??0 = no symptoms ??1 = symptoms noticeable but not bothersome 2 =symptoms bothersome but not daily ? 3 = symptoms bothersome and daily 4 = symptoms affect daily activities 5 = symptoms are incapacitating, unable to do daily activities ? How bad is the heartburn: 0 ? Heartburn while lying down: 0 ? Heartburn when standing up: 0 ? Heartburn after meals: 0 ? Does heartburn change your diet: 0 ? Does heartburn wake you up from sleep: 0 ? Do you have difficulty swallowin ? Do you have pain with swallowin ? If you take medicine for your reflux, does this affect your daily life: 0 Satisfaction with present condition - satisfied or not satisfied: dissatisfied [facility] Medical History Liver fibrosis Hx of renal calculi Depression Foot drop, left Lesion of left [place] kidney DJD (degenerative joint disease) Bipolar 1 disorder Anxiety Gout Sleep apnea treated with continuous positive airway pressure (CPAP) Surgical History S/P laparoscopic sleeve gastrectomy History of esophagogastroduodenoscopy (EGD) (02/21/24) History of parathyroidectomy History of back surgery Family History Mother No problems noted. Father No problems noted. Daughter No problems noted. Social History Household Members: Family Housing: Condominium Are you a primary clinical care leader to a significant other at home: No Do you presently have visiting nurse or other home services: No 75 years or older and lives alone: No Alcohol intake: current Alcohol intake frequency: holidays/special occasions only Patient Tobacco Use Status: Former Tobacco user Tobacco use type: Cigarette Years Smoked: 1 service: No Physical Exam Vital Signs: Last Vital Signs Temp 97.0 F 09/19/24 08:33 Pulse 75 09/19/24 08:33 BP 153/82 H 09/19/24 08:33 Pulse Ox 97 09/19/24 08:33 Oxygen Delivery Method Room Air 09/19/24 08:33 BMI result Body Mass Index 44.9 Const General: cooperative and no acute distress Orientation/consciousness: patient oriented x3 Resp Effort & Inspection: normal respiratory effort Auscultation: clear to auscultation bilaterally Cardio Rate: regular rate Rhythm: regular rhythm GI Inspection: Yes normal to inspection and Yes incision (well healed) Palpation (GI): Soft to palpation and no masses Neuro General: patient oriented x3 Assessment & Plan Assessment & Plan (1) S/P laparoscopic sleeve gastrectomy: Code(s): Z98.84 - Bariatric surgery status Category: Surgical Plan: Check six-month postop labs. Discussed the importance of changing his behavioral patterns and eating patterns. Given right BMI deepa paperwork Encouraged to text weight weekly Encouraged to exercise daily with a goal of burning 400 calories per day Cardio only for the next 3 months then we will begin to incorporate weight training Return to clinic 4 weeks Text with any questions or concerns Resume multivitamin Orders: Orders Lipid Panel Today E78.00 - Pure hypercholesterolemia, unspecified, I10 - Essential (primary) hypertension, K74.00 - Hepatic fibrosis, unspecified, Z98.84 - Bariatric surgery status Comprehensive Met. Panel Today E78.00 - Pure hypercholesterolemia, unspecified, I10 - Essential (primary) hypertension, K74.00 - Hepatic fibrosis, unspecified, Z98.84 - Bariatric surgery status Zinc Today E78.00 - Pure hypercholesterolemia, unspecified, I10 - Essential (primary) hypertension, K74.00 - Hepatic fibrosis, unspecified, Z98.84 - Bariatric surgery status C Reactive Protein Today E78.00 - Pure hypercholesterolemia, unspecified, I10 - Essential (primary) hypertension, K74.00 - Hepatic fibrosis, unspecified, Z98.84 - Bariatric surgery status Vitamin B1 Today E78.00 - Pure hypercholesterolemia, unspecified, I10 - Essential (primary) hypertension, K74.00 - Hepatic fibrosis, unspecified, Z98.84 - Bariatric surgery status TSH reflex Free T4 Today E78.00 - Pure hypercholesterolemia, unspecified, I10 - Essential (primary) hypertension, K74.00 - Hepatic fibrosis, unspecified, Z98.84 - Bariatric surgery status Vitamin D 25-OH Total Today E78.00 - Pure hypercholesterolemia, unspecified, I10 - Essential (primary) hypertension, K74.00 - Hepatic fibrosis, unspecified, Z98.84 - Bariatric surgery status Insulin Today E78.00 - Pure hypercholesterolemia, unspecified, I10 - Essential (primary) hypertension, K74.00 - Hepatic fibrosis, unspecified, Z98.84 - Bariatric surgery status Hemoglobin A1c Today E78.00 - Pure hypercholesterolemia, unspecified, I10 - Essential (primary) hypertension, K74.00 - Hepatic fibrosis, unspecified, Z98.84 - Bariatric surgery status Complete Blood Count Auto Diff Today E78.00 - Pure hypercholesterolemia, unspecified, I10 - Essential (primary) hypertension, K74.00 - Hepatic fibrosis, unspecified, Z98.84 - Bariatric surgery status IRON PROFILE Today E78.00 - Pure hypercholesterolemia, unspecified, I10 - Essential (primary) hypertension, K74.00 - Hepatic fibrosis, unspecified, Z98.84 - Bariatric surgery status Vitamin B12 and Folate Today E78.00 - Pure hypercholesterolemia, unspecified, I10 - Essential (primary) hypertension, K74.00 - Hepatic fibrosis, unspecified, Z98.84 - Bariatric surgery status Vitamin A Today E78.00 - Pure hypercholesterolemia, unspecified, I10 - Essential (primary) hypertension, K74.00 - Hepatic fibrosis, unspecified, Z98.84 - Bariatric surgery status Ferritin Today E78.00 - Pure hypercholesterolemia, unspecified, I10 - Essential (primary) hypertension, K74.00 - Hepatic fibrosis, unspecified, Z98.84 - Bariatric surgery status
[2024-09-19 08:33] VITALS: BP 153/82; PULSE 75; TEMP 36.1; O2SAT 97; BMI 44.9
== END 2024-09-19 08:53 | disposition home or self-care (01) ==
PROVIDERS: PCP Internal Medicine; Visit Provider Physician Assistant Surgical
DX: E66.01 Morbid (severe) obesity due to excess calories (principal); E66.813 Obesity, class 3; Z68.41 Body mass index [BMI] 40.0-44.9, adult; Z98.84 Bariatric surgery status
CPT/HCPCS: 99214; G2211

== ENCOUNTER → 2024-09-19 08:12 | Outpatient (BNVA) | payer OTHER, SELFPAY | PROVIDERS: PCP Internal Medicine; Visit Provider Physician Assistant Surgical | DX: K74.00 Hepatic fibrosis, unspecified (principal); E78.00 Pure hypercholesterolemia, unspecified; I10 Essential (primary) hypertension; Z71.3 Dietary counseling and surveillance; Z98.84 Bariatric surgery status | CPT/HCPCS: 99212 ==

== ENCOUNTER 2024-10-25 14:00 | Outpatient (AMB) | payer OTHER, SELFPAY ==
[2024-10-25 09:00] VITALS: BMI 44.3
--- NOTE | 2024-10-25 09:00 | A.OFFVIS_ITS ---
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: No Allergies Sulfa (Sulfonamide Antibiotics) Allergy (Intermediate, Verified 09/19/24 08:28) Rash pcn Adverse Reaction (Intermediate, Uncoded 04/24/24 14:35) rash Medication List - Last Reconciled 10/25/24 by CASSANDRA Lock allopurinol 300 mg PO DAILY bupropion HCl XL 300 mg PO DAILY citalopram 5 mg PO DAILY lorazepam 0.5 mg PO DAILY PRN lurasidone (Latuda) 60 mg PO BEDTIME omega 7-cfl-jyd-fish oil 1,000 (120-180) mg (Fish Oil) 1 cap PO DAILY oxcarbazepine 600 mg PO BID quetiapine 200 mg PO BEDTIME rosuvastatin 5 mg PO DAILY HPI Comments Details: This?a?49?yo male who is s/p LSG without hiatal hernia repair on?03/12/2024. Presents for 7 month post op visit. Weight today is 295.6 pounds, with a BMI of 44.3. There has been a 92 pound weight loss,(initial weight 387.6 pounds) since starting the program on 12/01/2023 reflecting a 23.7 % total body weight loss and a weight loss of 40.3 pounds since surgery (operative weight 335.9 pounds) reflecting a 11.9 % TBWL since surgery. No complaints of nausea, emesis, abdominal pain or reflux. Reports infrequent but normal bowel movements every 3- 4 days and uses stool softeners regularly. He was given paperwork regarding the right BMI deepa. He create a meal plan, he has been trying to stick with it but didn't follow exactly over the holidays taking mvi Present meal plan includes: Celebrate rebuild 2 scoops, 7-9, 10-12 1.5 celebrate bar 1-3 meal with 10 forks protein and 10 forks veg 1.5 celebrate bar 8-10 pm Drinking 50-60 oz water ? Exercise routine includes: walking outside stationary bike in house, 4 days per week, unable to track calories, trying for an hour per session PFSH Medical History Liver fibrosis Hx of renal calculi Depression Foot drop, left Lesion of left [place] kidney DJD (degenerative joint disease) Bipolar 1 disorder Anxiety Gout Sleep apnea treated with continuous positive airway pressure (CPAP) Surgical History S/P laparoscopic sleeve gastrectomy History of esophagogastroduodenoscopy (EGD) (02/21/24) History of parathyroidectomy History of back surgery Family History Mother No problems noted. Father No problems noted. Daughter No problems noted. Social History Household Members: Family Housing: Condominium Are you a primary medication care manager to a significant other at home: No Do you presently have visiting nurse or other home services: No 75 years or older and lives alone: No Alcohol intake: current Alcohol intake frequency: holidays/special occasions only Patient Tobacco Use Status: Former Tobacco user Tobacco use type: Cigarette Years Smoked: 1 service: No Physical Exam Vital Signs: BMI result Body Mass Index 44.3 Telehealth Telehealth Telehealth Platform: Telephone Location of provider rendering services: practice address Location of patient: address on file Patient Identification confirmed using: Name, : Yes Telehealth method: voice only Patient verbally consented to treatment: Yes Patient verbally consented to billing insurance company: Yes Patient informed of any privacy concerns related to visit: Yes Minutes spent on Phone/Video with Pt.: 15 Assessment & Plan Assessment & Plan (1) S/P laparoscopic sleeve gastrectomy: Code(s): Z98.84 - Bariatric surgery status Category: Medical Plan: We will recommend changing meal plans slightly: Celebrate rebuild 2 scoops, 7-9, 10-12 1 celebrate bar 1-3 meal with 10 forks protein and 10 forks veg 1 celebrate bar 8-10 pm Additionally, discussed the importance of returning to the right BMI deepa to reschedule and recalibrate his meal planning. Discussed the importance of consistent exercise. He states that he will consider buying a new stationary bike with his mom. At the very least, increasing exercise days from 4 days to 6 days per week. We will have him return to the office in approximately 2 months. Additionally, encouraged to continue to text weight weekly and with any questions or concerns
== END 2024-10-25 14:05 | disposition home or self-care (01) ==
LOC: HO.HBS 14:04
PROVIDERS: PCP Internal Medicine; Visit Provider Physician Assistant Surgical
DX: E66.813 Obesity, class 3 (principal); Z68.41 Body mass index [BMI] 40.0-44.9, adult; Z90.3 Acquired absence of stomach [part of]; Z98.84 Bariatric surgery status
CPT/HCPCS: 99213; G2211

== ENCOUNTER 2025-01-06 13:00 | Outpatient (AMB) | payer OTHER, SELFPAY ==
--- NOTE | 2025-01-06 09:11 | MHC.OFFVISWM ---
VS Expanded 01/06/25 09:12 Height 5 ft 8.5 in Weight 304 lb 8 oz BMI 45.6 Intake Visit Reasons: (tv) PO LSG 03/12/24 -see note Equal Opportunity Officer Required: No Allergies Sulfa (Sulfonamide Antibiotics) Allergy (Intermediate, Verified 09/19/24 08:28) Rash pcn Adverse Reaction (Intermediate, Uncoded 04/24/24 14:35) rash Medication List - Last Reconciled 01/06/25 by CASSANDRA Lock allopurinol 300 mg PO DAILY bupropion HCl XL 300 mg PO DAILY citalopram 5 mg PO DAILY lorazepam 0.5 mg PO DAILY PRN lurasidone (Latuda) 60 mg PO BEDTIME omega 8-vnz-ydp-fish oil 1,000 (120-180) mg (Fish Oil) 1 cap PO DAILY oxcarbazepine 600 mg PO BID quetiapine 200 mg PO BEDTIME rosuvastatin 5 mg PO DAILY HPI Comments Details: This?a?49?yo male who is s/p LSG without hiatal hernia repair on?03/12/2024. Presents for 10 month post op visit. Weight today is 304.8 pounds, with a BMI of 45.6. There has been a 82.8 pound weight loss,(initial weight 387.6 pounds) since starting the program on 12/01/2023 reflecting a 21.3 % total body weight loss and a weight loss of 31.1 pounds since surgery (operative weight 335.9 pounds) reflecting a 9.2 % TBWL since surgery. No complaints of nausea, emesis, abdominal pain or reflux. Reports infrequent but normal bowel movements every 3-4 days and uses stool softeners regularly. He was given paperwork regarding the right BMI deepa. He states he has been stressed and eating. Not creating a schedule for exercising. He has not been following the meal plan. He has had some financial struggles. taking mvi Present meal plan includes: Celebrate rebuild 2 scoops, 7-9, 10-12 1 celebrate bar 1-3 meal with 10 forks protein and 10 forks veg 1 celebrate bar 8-10 pm Drinking 50-60 oz water ? Exercise routine includes: walking outside stationary bike in house, 4 days per week, unable to track calories, trying for an hour per session PFSH Medical History Liver fibrosis Hx of renal calculi Depression Foot drop, left Lesion of left [place] kidney DJD (degenerative joint disease) Bipolar 1 disorder Anxiety Gout Sleep apnea treated with continuous positive airway pressure (CPAP) Surgical History S/P laparoscopic sleeve gastrectomy History of esophagogastroduodenoscopy (EGD) (02/21/24) History of parathyroidectomy History of back surgery Family History Mother No problems noted. Father No problems noted. Daughter No problems noted. Social History Household Members: Family Housing: Condominium Are you a primary transitional care liaison to a significant other at home: No Do you presently have visiting nurse or other home services: No 75 years or older and lives alone: No Alcohol intake: current Alcohol intake frequency: holidays/special occasions only Patient Tobacco Use Status: Former Tobacco user Tobacco use type: Cigarette Years Smoked: 1 service: No Telehealth Telehealth Telehealth Platform: Telephone Location of provider rendering services: practice address Location of patient: address on file Patient Identification confirmed using: Name, : Yes Telehealth method: voice only Patient verbally consented to treatment: Yes Patient verbally consented to billing insurance company: Yes Patient informed of any privacy concerns related to visit: Yes Minutes spent on Phone/Video with Pt.: 15 Assessment & Plan Assessment & Plan (1) S/P laparoscopic sleeve gastrectomy: Code(s): Z98.84 - Bariatric surgery status Category: Surgical Plan: Discussed the critical importance of consistency and purpose fullness. Patient states that he is trying to identify ways to improve his schedule. He is aware of the reasons why he has gained weight including not following the meal plan and not exercising regularly. He states that he has the tools, he has the protein bars and just needs to put in place the discipline. I encouraged him to text me weekly with his weight is and with any questions or concerns. We will have him return to the office in approximately 2 months for his 1 year follow-up
[2025-01-06 09:12] VITALS: BMI 45.6
== END 2025-01-06 13:17 | disposition home or self-care (01) ==
LOC: HO.HBS 13:14
PROVIDERS: PCP Internal Medicine; Visit Provider Physician Assistant Surgical
DX: E66.813 Obesity, class 3 (principal); Z68.42 Body mass index [BMI] 45.0-49.9, adult; Z90.3 Acquired absence of stomach [part of]; Z98.84 Bariatric surgery status
CPT/HCPCS: 99213; G2211

== ENCOUNTER → 2025-01-06 13:00 | Outpatient (BNVA) | payer OTHER, SELFPAY | PROVIDERS: PCP Internal Medicine; Visit Provider Physician Assistant Surgical | DX: Z98.84 Bariatric surgery status (principal); K74.00 Hepatic fibrosis, unspecified; E78.00 Pure hypercholesterolemia, unspecified; I10 Essential (primary) hypertension ==